=== PATIENT | female | born 1940 | race Caucasian/White ===

== ENCOUNTER 2017-05-04 08:59 | Emergency (ER) | payer MEDICARE, BC ==
[2017-05-04 09:21] VITALS: BP 140/86
--- NOTE | 2017-05-04 10:05 | EDM.PDOC ---
ED HPI GENERAL MEDICAL PROBLEM - General Chief Complaint: General Stated Complaint: WEAKNESS Time Seen by Provider: 05/04/17 09:55 Source of Information: Reports: Patient, RN Notes Reviewed History Limitations: Reports: No Limitations - History of Present Illness INITIAL COMMENTS - FREE TEXT/NARRATIVE: 77-year-old female presents emergency department day complaint of cough, weakness body aches and fever she's been ill for 3 days she did receive a flu shot this year - Related Data Allergies Allergy/AdvReac Type Severity Reaction Status Date / Time cephalexin monohydrate Allergy Rash Verified 05/04/17 09:26 [From Keflex] Penicillins Allergy Rash Verified 05/04/17 09:26 Sulfa (Sulfonamide AdvReac Nausea and Verified 05/04/17 09:26 Antibiotics) Vomiting Home Meds: Home Meds Aspirin [Halfprin] 81 mg PO DAILY 06/26/14 [History] Cholecalciferol (Vitamin D3) [Vitamin D3] 1,000 unit PO DAILY 06/26/14 [History] Multivitamin [Multi-Vitamin Daily] 1 each PO DAILY 06/26/14 [History] Omeprazole [Prilosec] 20 mg PO DAILY 06/26/14 [History] Albuterol Sulfate [Proair Hfa] 1 - 2 puff IH Q4H PRN 04/04/17 [History] Benzonatate [Tessalon Perles] 1 - 2 cap PO TID PRN 04/04/17 [History] Calcium Carb & Citrate/Vit D3 [Calcium + D3 ER Tablet] 1 tab PO DAILY 04/04/17 [ History] Cetirizine [ZyrTEC] 10 mg PO DAILY 04/04/17 [History] Codeine/guaiFENesin [guaiFENesin-Codeine Syrup] 10 ml PO Q4H PRN 04/04/17 [ History] Docusate Sodium [Colace] 100 mg PO DAILY 04/04/17 [History] Fluorometholone [Fluorometholone 0.1% Ophth Susp] 1 drop EYEBOTH BID PRN [History] Fluticasone Propionate [Flonase] 2 spray JACINTO DAILY 04/04/17 [History] Fluticasone/Salmeterol [Advair HFA 115-21] 2 puff INH BID 04/04/17 [History] LORazepam [Ativan] 1 mg PO BID PRN 04/04/17 [History] Melatonin 1 mg PO BEDTIME PRN 04/04/17 [History] Pyridoxine HCl [Vitamin B-6] 100 mg PO DAILY 04/04/17 [History] Metoprolol Tartrate [Lopressor] 25 mg PO DAILY 05/04/17 [History] amLODIPine Besylate [Amlodipine Besylate] 5 mg PO DAILY 05/04/17 [History] Past Medical History HEENT History: Reports: Allergic Rhinitis, Sinusitis Cardiovascular History: Reports: Arrhythmia, Hypertension Respiratory History: Reports: Asthma Other Respiratory History: lung cancer left bronchiole 2014 Neurological History: Reports: Neuropathy, Peripheral Endocrine/Metabolic History: Reports: Hypothyroidism Oncologic (Cancer) History: Reports: Lung, Other (See Below) Other Oncologic History: cancer on left bronchial tube, chemo and radiation 2 yrs ago - Past Surgical History Cardiovascular Surgical History: Reports: None Respiratory Surgical History: Reports: Other (See Below) Other Respiratory Surgeries/Procedures: bronchial tube cancer, radiation and chemo 2015 GI Surgical History: Reports: None Social & Family History - Tobacco Use Smoking Status *Q: Never Smoker Second Hand Smoke Exposure: No - Alcohol Use Days Per Week of Alcohol Use: 0 - Recreational Drug Use Recreational Drug Use: No ED ROS GENERAL - Review of Systems Review Of Systems: See Below Constitutional: Reports: Fever, Chills, Weakness HEENT: Reports: No Symptoms Respiratory: Reports: Cough, Sputum. Denies: Shortness of Breath Cardiovascular: Reports: No Symptoms GI/Abdominal: Reports: No Symptoms : Reports: No Symptoms Musculoskeletal: Reports: Muscle Pain Skin: Reports: No Symptoms ED EXAM, GENERAL - Physical Exam Exam: See Below Exam Limited By: No Limitations General Appearance: Alert, WD/WN, No Apparent Distress Head: Atraumatic, Normocephalic Neck: Normal Inspection, Supple, Non-Tender, Full Range of Motion Respiratory/Chest: No Respiratory Distress, Lungs Clear, Normal Breath Sounds, No Accessory Muscle Use Cardiovascular: Regular Rate, Rhythm, No Murmur Course - Vital Signs Last Recorded V/S: Last Vital Signs Temp 101.1 F H 05/04/17 09:33 Pulse 103 H 05/04/17 09:33 Resp 20 05/04/17 09:33 BP 140/86 05/04/17 09:33 Pulse Ox 93 L 05/04/17 09:33 Departure - Departure Time of Disposition: 10:03 Disposition: Home, Self-Care 01 Condition: Good Clinical Impression: Influenza A - Discharge Information Referrals: Lance Collins PA [Primary Care Provider] - Additional Instructions: Use the Robitussin-AC as needed for cough, use Zofran as needed for nausea and vomiting symptoms, Please followup with your primary care provider in 3-5 days if not better, please call return to the emergency department with worsening of symptoms. - Assessment/Plan Plan: Assessment Acuity = acute Site and laterality = seasonal flu Etiology = influenza A Manifestations = cough, nausea, vomiting fever Location of injury = Home Lab values = positive for influenza A Plan She is outside the window for Tamiflu treatment symptomatic treatment with Robitussin-AC 10 mL by mouth every 6 hours when necessary for cough Zofran ODT 4 mg every 8 hours when necessary nausea and vomiting symptoms follow-up with primary care 3-5 days if not better This note was dictated using [employer] voice recognition software please call with any questions on syntax or silvia.
[2017-05-04] MEDS ORDERED: Ondansetron 4 MG Tab.DIS PO ONE (10:13)
== END 2017-05-04 10:40 | disposition home or self-care (01) ==
LOC: JP.ED 08:59
DX: J10.1 Influenza due to other identified influenza virus with other respiratory manifestations (principal); E03.9 Hypothyroidism, unspecified; I10 Essential (primary) hypertension; Z88.2 Allergy status to sulfonamides; Z88.0 Allergy status to penicillin; Z88.8 Allergy status to other drugs, medicaments and biological substances; Z79.899 Other long term (current) drug therapy; Z79.82 Long term (current) use of aspirin
CPT/HCPCS: 87804; 99285; A9270; 99284

== ENCOUNTER 2017-10-11 11:47 | Emergency (ER) | payer MEDICARE, BC ==
[2017-10-11 12:09] VITALS: BP 130/88
--- NOTE | 2017-10-11 13:03 | EDM.PDOC ---
ED HPI GENERAL MEDICAL PROBLEM - General Chief Complaint: Cardiovascular Problem Stated Complaint: RAPID HEART RATE/DOESN'T FEEL WELL Time Seen by Provider: 10/11/17 12:20 Source of Information: Reports: Patient History Limitations: Reports: No Limitations - History of Present Illness INITIAL COMMENTS - FREE TEXT/NARRATIVE: 77-year-old female over the past 24 hours has felt generalized malaise, anxiety , and felt palpitations and tachycardia this morning. She had a cardiac workup last fall because of tachycardia and was placed on beta blockers. She had been doing well but over the past couple of days she's felt uneasy and worried her heart was acting up and something was wrong so went into the clinic and was sent over to the emergency room. She has just a very subtle slight chest pressure which is intermittent. She feels short of breath with activity intermittently, it isn't consistent. On arrival her pulse was 74, blood pressure normal and in a normal sinus rhythm. Onset: Gradual (Over the past 1-2 days) Location: Reports: Chest Severity: Moderate Associated Symptoms: Reports: Chest Pain (Mild intermittent chest pressure), Malaise, Other (Anxious). Denies: Confusion, Fever/Chills, Nausea/Vomiting - Related Data Allergies Allergy/AdvReac Type Severity Reaction Status Date / Time cephalexin monohydrate Allergy Rash Verified 10/11/17 12:09 [From Keflex] Penicillins Allergy Rash Verified 10/11/17 12:09 Sulfa (Sulfonamide AdvReac Nausea and Verified 10/11/17 12:09 Antibiotics) Vomiting Home Meds: Home Meds Aspirin [Halfprin] 81 mg PO DAILY 06/26/14 [History] Cholecalciferol (Vitamin D3) [Vitamin D3] 1,000 unit PO DAILY 06/26/14 [History] Multivitamin [Multi-Vitamin Daily] 1 each PO DAILY 06/26/14 [History] Omeprazole [Prilosec] 20 mg PO DAILY 06/26/14 [History] Albuterol Sulfate [Proair Hfa] 1 - 2 puff IH Q4H PRN 04/04/17 [History] Benzonatate [Tessalon Perles] 1 - 2 cap PO TID PRN 04/04/17 [History] Calcium Carb & Citrate/Vit D3 [Calcium + D3 ER Tablet] 1 tab PO DAILY 04/04/17 [ History] Cetirizine [ZyrTEC] 10 mg PO DAILY 04/04/17 [History] Codeine/guaiFENesin [guaiFENesin-Codeine Syrup] 10 ml PO Q4H PRN 04/04/17 [ History] Docusate Sodium [Colace] 100 mg PO DAILY 04/04/17 [History] Fluorometholone [Fluorometholone 0.1% Ophth Susp] 1 drop EYEBOTH BID PRN [History] Fluticasone Propionate [Flonase] 2 spray JACINTO DAILY 04/04/17 [History] Fluticasone/Salmeterol [Advair HFA 115-21] 2 puff INH BID 04/04/17 [History] Melatonin 1 mg PO BEDTIME PRN 04/04/17 [History] Pyridoxine HCl [Vitamin B-6] 100 mg PO DAILY 04/04/17 [History] amLODIPine Besylate [Amlodipine Besylate] 5 mg PO DAILY 05/04/17 [History] Levothyroxine [Synthroid] 10/11/17 [History] Propranolol [Inderal] 10/11/17 [History] Simvastatin [Zocor] 10/11/17 [History] Past Medical History HEENT History: Reports: Allergic Rhinitis, Sinusitis Cardiovascular History: Reports: Arrhythmia, Hypertension Respiratory History: Reports: Asthma Other Respiratory History: lung cancer left bronchiole 2014 Neurological History: Reports: Neuropathy, Peripheral Endocrine/Metabolic History: Reports: Hypothyroidism Oncologic (Cancer) History: Reports: Lung, Other (See Below) Other Oncologic History: cancer on left bronchial tube, chemo and radiation 2 yrs ago - Past Surgical History Cardiovascular Surgical History: Reports: None Respiratory Surgical History: Reports: Other (See Below) Other Respiratory Surgeries/Procedures: bronchial tube cancer, radiation and chemo 2015 GI Surgical History: Reports: None Social & Family History - Tobacco Use Smoking Status *Q: Never Smoker ED ROS GENERAL - Review of Systems Review Of Systems: See Below Constitutional: Reports: Malaise. Denies: Fever, Chills HEENT: Reports: No Symptoms Respiratory: Reports: Shortness of Breath (Intermittent shortness of breath) Cardiovascular: Reports: Palpitations GI/Abdominal: Denies: Nausea, Vomiting : Reports: No Symptoms Skin: Reports: No Symptoms Neurological: Denies: Headache Psychiatric: Reports: Anxiety ED EXAM, GENERAL - Physical Exam Exam: See Below Exam Limited By: No Limitations General Appearance: Alert, Anxious Eye Exam: Bilateral Eye: Normal Inspection Throat/Mouth: Normal Inspection Head: Atraumatic Neck: Normal Inspection Respiratory/Chest: No Respiratory Distress, Lungs Clear Cardiovascular: Regular Rate, Rhythm. No: Tachycardia, Extra Beats GI/Abdominal: Soft, Non-Tender Extremities: Normal Inspection. No: Pedal Edema Neurological: Alert, Oriented Psychiatric: Anxious Skin Exam: Warm, Dry EKG INTERPRETATION Rhythm: NSR Course - Vital Signs Last Recorded V/S: Last Vital Signs Temp 95.7 F 10/11/17 12:22 Pulse 90 10/11/17 12:22 Resp 18 10/11/17 12:22 BP 130/88 10/11/17 12:22 Pulse Ox 93 L 10/11/17 12:22 - Orders/Labs/Meds Orders: Active Orders 24 hr Category Date Time Status EKG Documentation Completion [RC] ASDIRECTED Care 10/11/17 12:40 Active EKG 12 Lead [EK] Routine Ther 10/11/17 12:40 Ordered Labs: Laboratory Tests 10/11/17 10/11/17 10/11/17 Range/Units 12:40 12:40 12:40 WBC 7.0 (4.5-11.0) K/uL RBC 4.60 (3.30-5.50) M/uL Hgb 14.1 (12.0-15.0) g/dL Hct 41.3 (36.0-48.0) % MCV 90 (80-98) fL MCH 31 (27-31) pg MCHC 34 (32-36) % Plt Count 295 (150-400) K/uL Neut % (Auto) 71 H (36-66) % Lymph % (Auto) 17 L (24-44) % [place] % (Auto) 10 H (2-6) % Eos % (Auto) 2 (2-4) % Baso % (Auto) 0 (0-1) % D-Dimer, Quantitative 367 (0.0-400.0) ng/mL Sodium 135 L (140-148) mmol/L Potassium 3.9 (3.6-5.2) mmol/L Chloride 100 (100-108) mmol/L Carbon Dioxide 26 (21-32) mmol/L Anion Gap 12.9 (5.0-14.0) mmol/L BUN 20 H (7-18) mg/dL Creatinine 0.8 (0.6-1.0) mg/dL Est Cr Clr Drug Dosing 58.18 mL/min Estimated GFR (MDRD) > 60 (>60) Glucose 116 H (74-106) mg/dL Calcium 9.2 (8.5-10.1) mg/dL Total Bilirubin 0.4 (0.2-1.0) mg/dL AST 16 (15-37) U/L ALT 23 (12-78) U/L Alkaline Phosphatase 102 (46-116) U/L Troponin I < 0.017 (0.000-0.056) ng/mL Total Protein 7.3 (6.4-8.2) g/dL Albumin 3.2 L (3.4-5.0) g/dL Globulin 4.1 H (2.3-3.5) g/dL Albumin/Globulin Ratio 0.8 L (1.2-2.2) - Re-Assessments/Exams Free Text/Narrative Re-Assessment/Exam: 10/11/17 13:02 An EKG was done and was normal sinus rhythm. While visiting with the patient over 20 minutes her pulse went from 90 down to 72. She remained in a sinus rhythm her entire visit in the emergency room. CBC, CMP, troponin and d-dimer were obtained. 10/11/17 14:03 Labs were all reassuring, patient remained in sinus rhythm. Prior to discharge she was ambulated in the halls and reached a maximum rate of 80. She was even worried about a rate of 80. She was reassured. Departure - Departure Time of Disposition: 14:19 Disposition: Home, Self-Care 01 Condition: Good Clinical Impression: Palpitations, Sinus tachycardia, Anxiety about health Instructions: Sinus Tachycardia Referrals: Lance Collins PA [Primary Care Provider] - Forms: ED Department Discharge Care Plan Goals: Continue your current medications and increase activity as tolerated. Return anytime if worsening or concerns. - My Orders Last 24 Hours: My Active Orders 10/11/17 12:40 EKG Documentation Completion [RC] ASDIRECTED EKG 12 Lead [EK] Routine - Assessment/Plan Last 24 Hours: My Active Orders 10/11/17 12:40 EKG Documentation Completion [RC] ASDIRECTED EKG 12 Lead [EK] Routine
== END 2017-10-11 14:20 | disposition home or self-care (01) ==
LOC: JP.ED 11:47
DX: F41.9 Anxiety disorder, unspecified (principal); R00.0 Tachycardia, unspecified; I10 Essential (primary) hypertension; Z88.1 Allergy status to other antibiotic agents; Z88.0 Allergy status to penicillin; Z88.2 Allergy status to sulfonamides; Z79.82 Long term (current) use of aspirin; Z79.899 Other long term (current) drug therapy
CPT/HCPCS: 36415; 80053; 84484; 85025; 85379; 93005; 99283; 99284-25

== ENCOUNTER 2018-10-08 09:27 | Emergency (ER) | payer MEDICARE, OTHER ==
[2018-10-08 09:56] VITALS: BP 137/74
--- NOTE | 2018-10-08 10:31 | EDM.PDOC ---
ED HPI GENERAL MEDICAL PROBLEM - General Chief Complaint: Cardiovascular Problem Stated Complaint: HEART ISSUES Time Seen by Provider: 10/08/18 10:15 Source of Information: Reports: Patient, Old Records, RN History Limitations: Reports: No Limitations - History of Present Illness INITIAL COMMENTS - FREE TEXT/NARRATIVE: 78 yo female felt light-headed this am and checked her HR and she was in the 40' s. She drank a glass of water and came right in. Now feels better, but still a bit light-headed when she gets up. No SOB, nausea or diaphoresis. Has non- exertional chest tightness in the past, like today, but no recent exertional chest tightness. Took all her heart medicines this am. Her normal HR is in the 70's and her BP around 100/70. No new med changes reported. Is followed by cardiology with her last visit in August of this year. Onset: Today Onset Date: 10/08/18 Duration: Minutes:, Improving Location: Reports: Chest Quality: Reports: Pressure (mild) Severity: Mild Improves with: Reports: Other (? time) Worsens with: Reports: Other (unknown) Context: Reports: Other (see HPI) Associated Symptoms: Reports: Other (light-headed) Treatments ENTRY LEVEL FINANCE: Reports: Other (see below) (drank a glass of water) - Related Data Allergies Allergy/AdvReac Type Severity Reaction Status Date / Time cephalexin monohydrate Allergy Rash Verified 10/08/18 09:41 [From Keflex] Penicillins Allergy Rash Verified 10/08/18 09:41 Sulfa (Sulfonamide AdvReac Nausea and Verified 10/08/18 09:41 Antibiotics) Vomiting Home Meds: Home Meds Aspirin [Halfprin] 81 mg PO DAILY 06/26/14 [History] Cholecalciferol (Vitamin D3) [Vitamin D3] 1,000 unit PO DAILY 06/26/14 [History] Multivitamin [Multi-Vitamin Daily] 1 each PO DAILY 06/26/14 [History] Omeprazole [Prilosec] 20 mg PO DAILY 06/26/14 [History] Albuterol Sulfate [Proair Hfa] 1 - 2 puff IH Q4H PRN 04/04/17 [History] Calcium Carb & Citrate/Vit D3 [Calcium + D3 ER Tablet] 1 tab PO DAILY 04/04/17 [ History] Cetirizine [ZyrTEC] 10 mg PO DAILY 04/04/17 [History] Docusate Sodium [Colace] 100 mg PO DAILY 04/04/17 [History] Fluorometholone [Fluorometholone 0.1% Ophth Susp] 1 drop EYEBOTH BID PRN [History] Fluticasone Propionate [Flonase] 2 spray JACINTO DAILY 04/04/17 [History] Fluticasone/Salmeterol [Advair HFA 115-21] 2 puff INH BID 04/04/17 [History] Melatonin 1 mg PO BEDTIME PRN 04/04/17 [History] Pyridoxine HCl [Vitamin B-6] 100 mg PO DAILY 04/04/17 [History] amLODIPine Besylate [Amlodipine Besylate] 5 mg PO DAILY 05/04/17 [History] Levothyroxine [Synthroid] 1 tab PO QAM 10/11/17 [History] Simvastatin [Zocor] 1 tab PO BEDTIME 10/11/17 [History] Barium Sulfate [Volumen 0.1% Susp] 450 ml TOP QID 10/08/18 [History] Furosemide [Lasix] 20 mg PO 10/08/18 [History] LORazepam 0.5 mg PO Q6H PRN 10/08/18 [History] Losartan [Cozaar] 12.5 mg PO DAILY 10/08/18 [History] Metoprolol Succinate [Toprol XL] 12.5 mg PO DAILY 10/08/18 [History] Nitroglycerin 0.4 mg SL ASDIRECTED 10/08/18 [History] Past Medical History HEENT History: Reports: Allergic Rhinitis, Cataract, Sinusitis Cardiovascular History: Reports: Arrhythmia, Heart Failure, Hypertension Respiratory History: Reports: Asthma Other Respiratory History: lung cancer left bronchiole 2014 [employer] History: Reports: Neurological History: Reports: Neuropathy, Peripheral Endocrine/Metabolic History: Reports: Hypothyroidism Oncologic (Cancer) History: Reports: Lung, Other (See Below) Other Oncologic History: cancer on left bronchial tube, chemo and radiation 2 yrs ago - Infectious Disease History Infectious Disease History: Reports: Chicken Pox, Measles, Mumps, Scarlet Fever - Past Surgical History HEENT Surgical History: Reports: Cataract Surgery, Eye Surgery Other HEENT Surgeries/Procedures: right eye lid surgery Cardiovascular Surgical History: Reports: None Respiratory Surgical History: Reports: Other (See Below) Other Respiratory Surgeries/Procedures: bronchial tube cancer, radiation and chemo 2016 lung collapsed with cancer treatment GI Surgical History: Reports: None Female Surgical History: Reports: Breast Biopsy Social & Family History - Tobacco Use Smoking Status *Q: Former Smoker Years of Tobacco use: 5 Packs/Tins Daily: 1 Used Tobacco, but Quit: Yes Month/Year Tobacco Last Used: 03/1967 Second Hand Smoke Exposure: Yes - Caffeine Use Caffeine Use: Reports: Coffee - Recreational Drug Use Recreational Drug Use: No ED ROS GENERAL - Review of Systems Review Of Systems: See Below Constitutional: Reports: No Symptoms, Weight Gain Respiratory: Reports: No Symptoms Cardiovascular: Reports: Chest Pain (mild tightness), Lightheadedness. Denies: Blood Pressure Problem, Dyspnea on Exertion, Orthopnea, Palpitations, Syncope Endocrine: Reports: No Symptoms GI/Abdominal: Reports: No Symptoms : Reports: No Symptoms Musculoskeletal: Reports: No Symptoms Skin: Reports: No Symptoms Neurological: Reports: No Symptoms Psychiatric: Reports: No Symptoms ED EXAM, GENERAL - Physical Exam Exam: See Below Exam Limited By: No Limitations General Appearance: Alert, WD/WN, No Apparent Distress Eye Exam: Bilateral Eye: Normal Inspection Ears: Normal External Exam, Normal Canal, Hearing Grossly Normal Ear Exam: Bilateral Ear: Auricle Normal, Canal Normal Nose: Normal Inspection, No Blood Throat/Mouth: Normal Inspection, Normal Lips, Normal Voice, No Airway Compromise Head: Atraumatic, Normocephalic Respiratory/Chest: No Respiratory Distress, Lungs Clear, Normal Breath Sounds, No Accessory Muscle Use Cardiovascular: Regular Rate, Rhythm, No Edema. No: Bradycardia, Tachycardia GI/Abdominal: Normal Bowel Sounds, Soft, Non-Tender, No Distention Back Exam: Normal Inspection. No: CVA Tenderness (R), CVA Tenderness (L) Extremities: Normal Inspection, Normal Range of Motion, Non-Tender, No Pedal Edema Neurological: Alert, Oriented, CN II-XII Intact, Normal Cognition, No Motor/ Sensory Deficits Psychiatric: Normal Affect, Normal Mood Skin Exam: Warm, Dry, Intact, Normal Color, No Rash EKG INTERPRETATION EKG Date: 10/08/18 Time: 10:30 Rhythm: NSR Rate (Beats/Min): 67 [place]: Normal P-Wave: Present QRS: Normal ST-T: Normal QT: Normal Comparison: No Change Course - Vital Signs Text/Narrative:: Orthostats normal Last Recorded V/S: Last Vital Signs Temp 36.4 C 10/08/18 09:56 Pulse 69 10/08/18 09:56 Resp 14 10/08/18 09:56 BP 137/74 10/08/18 09:56 Pulse Ox 96 10/08/18 09:56 - Orders/Labs/Meds Orders: Active Orders 24 hr Category Date Time Status Cardiac Monitoring [RC] .As Directed Care 10/08/18 09:29 Active EKG Documentation Completion [RC] ASDIRECTED Care 10/08/18 10:10 Active Orthostatic Vital Signs [RC] ASDIRECTED Care 10/08/18 10:26 Active EKG 12 Lead [EK] Routine Ther 10/08/18 10:09 Ordered Departure - Departure Time of Disposition: 11:00 Disposition: Home, Self-Care 01 Condition: Good Clinical Impression: Bradycardia Instructions: Bradycardia, Adult Referrals: Elyse Morrison PA-C [Primary Care Provider] - Forms: ED Department Discharge Additional Instructions: Return Holter monitor after 48 hrs as directed. Recheck with your provider in a few days to see what was found. Return as needed. - My Orders Last 24 Hours: My Active Orders 10/08/18 09:29 Cardiac Monitoring [RC] .As Directed 10/08/18 10:09 EKG 12 Lead [EK] Routine 10/08/18 10:10 EKG Documentation Completion [RC] ASDIRECTED 10/08/18 10:26 Orthostatic Vital Signs [RC] ASDIRECTED - Assessment/Plan Last 24 Hours: My Active Orders 10/08/18 09:29 Cardiac Monitoring [RC] .As Directed 10/08/18 10:09 EKG 12 Lead [EK] Routine 10/08/18 10:10 EKG Documentation Completion [RC] ASDIRECTED 10/08/18 10:26 Orthostatic Vital Signs [RC] ASDIRECTED
== END 2018-10-08 11:18 | disposition home or self-care (01) ==
LOC: JP.ED 09:27
DX: R00.1 Bradycardia, unspecified (principal); I11.0 Hypertensive heart disease with heart failure; I50.9 Heart failure, unspecified; J45.909 Unspecified asthma, uncomplicated; E03.9 Hypothyroidism, unspecified; Z87.891 Personal history of nicotine dependence; Z88.2 Allergy status to sulfonamides; Z79.899 Other long term (current) drug therapy
CPT/HCPCS: 93005; 93010; 93225; 93226; 99283-25

== ENCOUNTER 2020-07-26 11:45 | Inpatient (IN) | payer MEDICARE, OTHER ==
--- NOTE | 2020-07-26 12:29 | EDM.PDOC ---
ED HPI GENERAL MEDICAL PROBLEM - General Chief Complaint: ENT Problem Stated Complaint: SENT FROM CLINIC Time Seen by Provider: 07/26/20 12:15 Source of Information: Reports: Patient, RN Notes Reviewed History Limitations: Reports: No Limitations - History of Present Illness INITIAL COMMENTS - FREE TEXT/NARRATIVE: 80-year-old female presents emergency department today with complaint of swelling difficulty swallowing that is really progressed over the last 24 hours. She was initially evaluated in clinic basic blood work at that time was done BMP negative mono negative strep was negative white count did reveal elevated WBC at 23,000. Sent to the emergency department for further evaluation. She denies any fevers no nausea or vomiting does feel short of breath at times. - Related Data Allergies Allergy/AdvReac Type Severity Reaction Status Date / Time adhesive tape Allergy Rash Verified 07/26/20 11:52 amoxicillin Allergy Rash Verified 07/26/20 11:52 ampicillin Allergy Rash Verified 07/26/20 11:52 cephalexin monohydrate Allergy Rash Verified 07/26/20 11:52 [From Keflex] Penicillins Allergy Rash Verified 07/26/20 11:52 Sulfa (Sulfonamide AdvReac Nausea and Verified 07/26/20 11:52 Antibiotics) Vomiting Home Meds: Home Meds Aspirin [Halfprin] 81 mg PO DAILY 06/26/14 [History] Cholecalciferol (Vitamin D3) [Vitamin D3] 1,000 unit PO DAILY 06/26/14 [History] Multivitamin [Multi-Vitamin Daily] 1 each PO DAILY 06/26/14 [History] Albuterol Sulfate [Proair Hfa] 1 - 2 puff IH Q4H PRN 04/04/17 [History] Calcium Carb, Citrate/Vit D3 [Calcium + D3 ER Tablet] 1 tab PO DAILY 04/04/17 [History] Cetirizine [ZyrTEC] 10 mg PO DAILY 04/04/17 [History] Docusate Sodium [Colace] 100 mg PO DAILY 04/04/17 [History] Fluorometholone [Fluorometholone 0.1% Ophth Susp] 1 drop EYEBOTH BID PRN 04/04/17 [History] Fluticasone Propionate [Flonase] 2 spray JACINTO DAILY 04/04/17 [History] Pyridoxine HCl (Vitamin B6) [Vitamin B-6] 100 mg PO DAILY 04/04/17 [History] amLODIPine Besylate [Amlodipine Besylate] 5 mg PO DAILY 05/04/17 [History] Levothyroxine [Synthroid] 88 mcg PO QAM 10/11/17 [History] Simvastatin [Zocor] 40 mg PO BEDTIME 10/11/17 [History] Furosemide [Lasix] 20 mg PO DAILY PRN 10/08/18 [History] Losartan [Cozaar] 12.5 mg PO DAILY 10/08/18 [History] Metoprolol Succinate [Toprol XL] 12.5 mg PO DAILY 10/08/18 [History] Nitroglycerin 0.4 mg SL ASDIRECTED 10/08/18 [History] Famotidine 40 mg PO DAILY 06/01/20 [History] Fluticasone/Umeclidin/Vilanter [Trelegy Ellipta 100-62.5-25] 1 puff INH DAILY 06/01/20 [History] Montelukast [Singulair] 10 mg PO DAILY 06/01/20 [History] Albuterol Sulfate 3 ml IH Q6H PRN 07/12/20 [History] Ipratropium [Atrovent 0.06% Nasal [place]] 2 spray NASBOTH DAILY 07/12/20 [History] Past Medical History HEENT History: Reports: Allergic Rhinitis, Cataract, Sinusitis Cardiovascular History: Reports: Arrhythmia, Heart Failure, Hypertension Respiratory History: Reports: Asthma Other Respiratory History: lung cancer left bronchiole 2014 [employer] History: Reports: Musculoskeletal History: Reports: Other (See Below) Other Musculoskeletal History: bilat knee pain Neurological History: Reports: Neuropathy, Peripheral Endocrine/Metabolic History: Reports: Hypothyroidism Oncologic (Cancer) History: Reports: Lung, Other (See Below) Other Oncologic History: cancer on left bronchial tube, chemo and radiation 2 yrs ago - Infectious Disease History Infectious Disease History: Reports: Chicken Pox, Measles, Mumps, Scarlet Fever - Past Surgical History Head Surgeries/Procedures: Reports: None HEENT Surgical History: Reports: Cataract Surgery, Eye Surgery Other HEENT Surgeries/Procedures: right eye lid surgery Cardiovascular Surgical History: Reports: None Respiratory Surgical History: Reports: Other (See Below) Other Respiratory Surgeries/Procedures: bronchial tube cancer, radiation and chemo 2016 lung collapsed with cancer treatment GI Surgical History: Reports: None Female Surgical History: Reports: Breast Biopsy Oncologic Surgical History: Reports: None Social & Family History - Tobacco Use Tobacco Use Status *Q: Never Tobacco User Second Hand Smoke Exposure: No - Caffeine Use Caffeine Use: Reports: Coffee, Soda, Tea - Recreational Drug Use Recreational Drug Use: No ED ROS ENT - Review of Systems Review Of Systems: See Below Constitutional: Denies: Fever, Chills HEENT: Reports: Throat Pain, Throat Swelling Respiratory: Reports: Shortness of Breath Cardiovascular: Reports: No Symptoms GI/Abdominal: Reports: No Symptoms : Reports: No Symptoms ED EXAM, ENT - Physical Exam Exam: See Below Text/Narrative:: Mouth mucosa is moist and pink I do appreciate some edema right side of the mouth there is some edema on the floor of the mouth as well 1 cm size aphthous ulcers appreciated on the base of the tongue right side. Exam Limited By: No Limitations General Appearance: Alert, WD/WN, No Apparent Distress Neck: Other (There is a large tender mass right side of the neck submandibular just starting to extend the superior portion of the neck I do not appreciate anything in the anterior cervical chain bilaterally there is no deviation of the trachea) Respiratory/Chest: No Respiratory Distress, Lungs Clear, Normal Breath Sounds, No Accessory Muscle Use, Chest Non-Tender Cardiovascular: Regular Rate, Rhythm, No Murmur GI/Abdominal: Soft, Non-Tender Course - Vital Signs Last Recorded V/S: Last Vital Signs Temp 97.5 F 07/28/20 04:00 Pulse 66 07/28/20 04:00 Resp 18 07/28/20 04:00 BP 100/54 L 07/28/20 04:00 Pulse Ox 97 07/28/20 04:00 - Orders/Labs/Meds Orders: Medication Orders Acetaminophen (Acetaminophen 325 Mg Tab) 650 mg PO Q4H PRN PRN Reason: Pain (Mild 1-3)/fever Albuterol (Albuterol 0.083% 2.5 Mg/3 Ml Neb Soln) 2.5 mg NEB Q4H PRN PRN Reason: Shortness Of Breath/wheezing Amlodipine Besylate (Amlodipine 5 Mg Tab) 5 mg PO DAILY [facility] Last Admin: 07/27/20 09:07 Dose: 5 mg Documented by: CHRISTOPHE Aspirin (Aspirin 81 Mg Tab.Ec) 81 mg PO DAILY [facility] Last Admin: 07/27/20 09:02 Dose: 81 mg Documented by: CHRISTOPHE Benzocaine/Menthol (Benzocaine/Cetylpyridinium/Menthol Lozenge) 1 lozenge MUCMEM Q2H PRN PRN Reason: Sore Throat Cetirizine HCl (Cetirizine 10 Mg Tab) 10 mg PO DAILY [facility] Last Admin: 07/27/20 09:01 Dose: 10 mg Documented by: CHRISTOPHE Famotidine (Famotidine 20 Mg Tab) 40 mg PO DAILY [facility] Last Admin: 07/27/20 09:02 Dose: 40 mg Documented by: CHRISTOPHE Fluticasone Propionate (Fluticasone Propionate Nasal [place] 16 Gm Bottle) 0 gm NASBOTH DAILY [facility] Last Admin: 07/27/20 09:03 Dose: 1 appful Documented by: CHRISTOPHE Levofloxacin/Dextrose 500 mg/ (Premix) 100 mls @ 100 mls/hr IV Q24H [facility] Last Admin: 07/27/20 15:06 Dose: 100 mls/hr Documented by: LIMA Clindamycin Phosphate 600 mg/ (Sodium Chloride) 54 mls @ 100 mls/hr IV Q8H [facility] Last Admin: 07/28/20 04:11 Dose: 100 mls/hr Documented by: Admin: 07/27/20 20:52 Dose: 100 mls/hr Documented by: Admin: 07/27/20 14:15 Dose: 100 mls/hr Documented by: Admin: 07/27/20 05:32 Dose: 100 mls/hr Documented by: Admin: 07/26/20 21:02 Dose: 100 mls/hr Documented by: GUERLINE Ibuprofen (Ibuprofen 600 Mg Tab) 600 mg PO Q6H PRN PRN Reason: Pain/Fever Ipratropium [place] (Ipratropium 0.06% Nasal [place] 15 Ml Bottle) 0 ml NASBOTH DAILY [facility] Last Admin: 07/27/20 09:09 Dose: Not Given Documented by: CHRISTOPHE Ketorolac Tromethamine (Ketorolac 30 Mg/Ml Sdv) 15 mg IVPUSH Q6H PRN PRN Reason: Pain (moderate 4-6) Stop: 07/31/20 15:34 Lactobacillus Rhamnosus (Lactobacillus Rhamnosus Gg (Probiotic) Cap) 1 cap PO BID [facility] Last Admin: 07/27/20 20:52 Dose: 1 cap Documented by: Admin: 07/27/20 09:02 Dose: 1 cap Documented by: Admin: 07/26/20 21:01 Dose: 1 cap Documented by: GUERLINE Levothyroxine Sodium (Levothyroxine 88 Mcg Tab) 88 mcg PO ACBREAKFAST [facility] Last Admin: 07/27/20 07:36 Dose: 88 mcg Documented by: CHRISTOPHE Losartan Potassium (Losartan 25 Mg Tab) 12.5 mg PO DAILY [facility] Last Admin: 07/27/20 09:07 Dose: 12.5 mg Documented by: CHRISTOPHE Magnesium Hydroxide (Magnesium Hydroxide 400 Mg/5 Ml Susp 30 Ml Cup) 30 ml PO Q12H PRN PRN Reason: Constipation Melatonin (Melatonin 3 Mg Tab) 9 mg PO BEDTIME PRN PRN Reason: Sleep Last Admin: 07/27/20 21:44 Dose: 9 mg Documented by: Admin: 07/27/20 00:20 Dose: 9 mg Documented by: GUERLINE Metoprolol Succinate (Metoprolol Succinate 25 Mg Tab.Er) 12.5 mg PO DAILY [facility] Last Admin: 07/27/20 09:07 Dose: 12.5 mg Documented by: CHRISTOPHE Montelukast Sodium (Montelukast 10 Mg Tab) 10 mg PO DAILY [facility] Last Admin: 07/27/20 09:02 Dose: 10 mg Documented by: CHRISTOPHE (Fluticasone/Umeclidin/Vilanter [ Trelegy Ellipta 100- 62.5-*Pom* 1 puff INH DAILY [facility] Last Admin: 07/27/20 08:20 Dose: 1 puff Documented by: AKASH Ondansetron HCl (Ondansetron 4 Mg/2 Ml Sdv) 4 mg IV Q6H PRN PRN Reason: Nausea/Vomiting Ondansetron HCl (Ondansetron 4 Mg Tab.Dis) 4 mg PO Q6H PRN PRN Reason: Nausea able to take PO Last Admin: 07/27/20 08:59 Dose: 4 mg Documented by: CHRISTOPHE Pyridoxine HCl (Vitamin B6-Pyridoxine 50 Mg Tab) 100 mg PO DAILY [facility] Last Admin: 07/27/20 09:02 Dose: 100 mg Documented by: SWANRHO Senna/Docusate Sodium (Docusate Sodium/Sennosides 50-8.6 Mg Tab) 1 tab PO BID PRN PRN Reason: Constipation Simvastatin (Simvastatin 20 Mg Tab) 40 mg PO BEDTIME [facility] Last Admin: 07/27/20 20:52 Dose: 40 mg Documented by: Admin: 07/26/20 21:01 Dose: 40 mg Documented by: GUERLINE Labs: Laboratory Tests 07/26/20 07/26/20 Range/Units 12:48 12:48 Lactic Acid 1.4 (0.4-2.0) mmol/L C-Reactive Protein 10.39 H (0.0-0.3) mg/dL Meds: Medications Generic Name Dose Route Start Last Admin Trade Name Freq PRN Reason Stop Dose Admin Acetaminophen 650 mg 07/26/20 15:33 Acetaminophen 325 Mg Tab PO Q4H PRN Pain (Mild 1-3)/fever Albuterol 2.5 mg 07/26/20 15:33 Albuterol 0.083% 2.5 Mg/3 Ml Neb Soln NEB Q4H PRN Shortness Of Breath/wheezing Amlodipine Besylate 5 mg 07/27/20 09:00 07/27/20 09:07 Amlodipine 5 Mg Tab PO 5 mg DAILY [facility] Administration Aspirin 81 mg 07/27/20 09:00 07/27/20 09:02 Aspirin 81 Mg Tab.Ec PO 81 mg DAILY [facility] Administration Benzocaine/Menthol 1 lozenge 07/26/20 15:33 Benzocaine/Cetylpyridinium/Menthol Lozenge MUCMEM Q2H PRN Sore Throat Cetirizine HCl 10 mg 07/27/20 09:00 07/27/20 09:01 Cetirizine 10 Mg Tab PO 10 mg DAILY [facility] Administration Famotidine 40 mg 07/27/20 09:00 07/27/20 09:02 Famotidine 20 Mg Tab PO 40 mg DAILY [facility] Administration Fluticasone Propionate 0 gm 07/27/20 09:00 07/27/20 09:03 Fluticasone Propionate Nasal [place] 16 Gm Bottle NASBOTH 1 appful DAILY [facility] Administration Levofloxacin/Dextrose 500 mg/ 100 mls @ 100 mls/hr 07/27/20 15:00 07/27/20 15:06 Premix IV 100 mls/hr Q24H [facility] Administration Clindamycin Phosphate 600 mg/ 54 mls @ 100 mls/hr 07/26/20 21:00 07/28/20 04:11 Sodium Chloride IV 100 mls/hr Q8H [facility] Administration Ibuprofen 600 mg 07/26/20 15:33 Ibuprofen 600 Mg Tab PO Q6H PRN Pain/Fever Ipratropium [place] 0 ml 07/27/20 09:00 07/27/20 09:09 Ipratropium 0.06% Nasal [place] 15 Ml Bottle NASBOTH Not Given DAILY [facility] Ketorolac Tromethamine 15 mg 07/26/20 15:33 Ketorolac 30 Mg/Ml Sdv IVPUSH 07/31/20 15:34 Q6H PRN Pain (moderate 4-6) Lactobacillus Rhamnosus 1 cap 07/26/20 21:00 07/27/20 20:52 Lactobacillus Rhamnosus Gg (Probiotic) Cap PO 1 cap BID [facility] Administration Levothyroxine Sodium 88 mcg 07/27/20 07:30 07/27/20 07:36 Levothyroxine 88 Mcg Tab PO 88 mcg ACBREAKFAST [facility] Administration Losartan Potassium 12.5 mg 07/27/20 09:00 07/27/20 09:07 Losartan 25 Mg Tab PO 12.5 mg DAILY [facility] Administration Magnesium Hydroxide 30 ml 07/26/20 15:33 Magnesium Hydroxide 400 Mg/5 Ml Susp 30 Ml Cup PO Q12H PRN Constipation Melatonin 9 mg 07/26/20 15:33 07/27/20 21:44 Melatonin 3 Mg Tab PO 9 mg BEDTIME PRN Administration Sleep Metoprolol Succinate 12.5 mg 07/27/20 09:00 07/27/20 09:07 Metoprolol Succinate 25 Mg Tab.Er PO 12.5 mg DAILY [facility] Administration Montelukast Sodium 10 mg 07/27/20 09:00 07/27/20 09:02 Montelukast 10 Mg Tab PO 10 mg DAILY [facility] Administration (Fluticasone/ 1 puff 07/27/20 09:00 07/27/20 08:20 Umeclidin/Vilanter [ INH 1 puff Trelegy Ellipta 100- DAILY [facility] Administration 62.5-*Pom* Ondansetron HCl 4 mg 07/26/20 15:33 Ondansetron 4 Mg/2 Ml Sdv IV Q6H PRN Nausea/Vomiting Ondansetron HCl 4 mg 07/26/20 15:33 07/27/20 08:59 Ondansetron 4 Mg Tab.Dis PO 4 mg Q6H PRN Administration Nausea able to take PO Pyridoxine HCl 100 mg 07/27/20 09:00 07/27/20 09:02 Vitamin B6-Pyridoxine 50 Mg Tab PO 100 mg DAILY [facility] Administration Senna/Docusate Sodium 1 tab 07/26/20 15:33 Docusate Sodium/Sennosides 50-8.6 Mg Tab PO BID PRN Constipation Simvastatin 40 mg 07/26/20 21:00 07/27/20 20:52 Simvastatin 20 Mg Tab PO 40 mg BEDTIME [facility] Administration Discontinued Medications Generic Name Dose Route Start Last Admin Trade Name Freq PRN Reason Stop Dose Admin Sodium Chloride 70 mls @ 3 mls/sec 07/26/20 13:15 07/26/20 13:16 Normal Saline IV 07/26/20 16:00 3 mls/sec ASDIRECTED [facility]IN Administration Levofloxacin/Dextrose 500 mg/ 100 mls @ 100 mls/hr 07/26/20 14:16 07/26/20 15:05 Premix IV 07/26/20 15:15 100 mls/hr ONETIME ONE Administration Clindamycin Phosphate 600 mg/ 54 mls @ 100 mls/hr 07/26/20 16:00 07/26/20 16:44 Sodium Chloride IV 100 mls/hr Q8H [facility] Administration Sodium Chloride 1,000 mls @ 125 mls/hr 07/26/20 15:33 07/27/20 00:52 Normal Saline IV 125 mls/hr ASDIRECTED [facility] Administration Iopamidol 100 ml 07/26/20 13:04 07/26/20 13:17 Iopamidol 612 Mg/Ml 500 Ml Multipack Bottle IV 07/26/20 13:05 100 ml ONETIME ONE Administration Sodium Chloride 10 ml 07/26/20 13:04 07/26/20 13:16 Sodium Chloride 0.9% 10 Ml Syringe FLUSH 07/26/20 13:05 10 ml ONETIME ONE Administration Departure - Departure Time of Disposition: 07:09 Disposition: Admitted As Inpatient 67 Condition: Fair Clinical Impression: Mass of submandibular region - Discharge Information Sepsis Event Note (ED) - Evaluation Sepsis Screening Result: No Definite Risk - Assessment/Plan Plan: Assessment Acuity = acute Site and laterality = submandibular mass right side Etiology = unknown Manifestations = difficulty swallowing Location of injury = Home Lab values = lactic acid normal 1.[address] scan describes mass above Plan Call discussed case hospitalist services 1800 kindly agreed to come and evaluate the patient emergency department for admission This note was dictated using [employer] voice recognition software please call with any questions on syntax or grammar.
[2020-07-26] MEDS ORDERED: Sodium Chloride 0.9% 10 ML Syringe FLUSH ONE (13:04)
[2020-07-26] MEDS ORDERED: Iopamidol 612 MG/ML 500 ML Multipack Bottle IV ONE (13:04)
--- NOTE | 2020-07-26 14:03 | CT ---
Soft Tissue Neck w Cont CLINICAL HISTORY: Right submandibular mass COMPARISON: None TECHNIQUE: Multiple axial images were obtained of the neck with the IV infusion of iodinated contrast. Auto dosage reduction and iterative reconstruction techniques employed. FINDINGS: The nasopharynx has a normal contour. There is near complete opacification of the left maxillary sinus. There is some chronic mucoperiosteal reaction in the sinus wall.. There are no parapharyngeal masses seen. The vallecula is asymmetric with some mass effect on the right. There is soft tissue swelling on the right down to just below the piriform sinus. The vocal cords are symmetric. The subglottic airway has a normal course and contour. The thyroid gland appears normal bilaterally. There is some fatty replacement in both submandibular glands. The right submandibular gland is enlarged. There is stranding in the fat surrounding the performed sinus. There are some ill-definition on the right digastric muscle. There are multiple enlarged lymph nodes in the right neck IMPRESSION: Soft tissue swelling in the right low pharynx extending to the floor the mouth and right submandibular region. There is enlargement of the right submandibular gland with some inflammatory change. This may represent a diffuse inflammatory process. Underlying neoplasm is not excluded Lymphadenopathy in the right neck
[2020-07-26] MEDS ORDERED: Levofloxacin/Dextrose 5%-Water 500 MG in Premix Bag 1 BAG IV ONE (14:16)
--- NOTE | 2020-07-26 15:17 | PCM.HP.2 ---
H&P History of Present Illness - General Date of Service: 07/26/20 Admit Problem/Dx: Admission Diagnosis/Problem Admission Diagnosis/Problem Sialoadenitis of submandibular gland Source of Information: Patient, Provider History Limitations: Reports: No Limitations - History of Present Illness Initial Comments - Free Text/Narative: CC: It hurts to swallow HPI: Minna presents to the emergency room from the clinic after presenting with throat pain and right neck swelling. She reports 2 days of progressive pain and swelling involving the right side of her neck and throat. Pain is described as a razor blade-like pain that occurs when she swallows. This pain is severe. She has a very mild pain when she is not trying to swallow. She did get a dose of ketorolac at the clinic and this has helped the pain some. She had not tried anything else. Pain has steadily been getting worse over the past 48 hours. The swelling in the neck has progressed over that time as well. She does not feel short of breath. She has had subjective fevers and has measured a temperature of 99 9 and this was taken about 2 hours after she had Tylenol. No sick contacts or recent travel. No nausea or abdominal pain. She has not had anything more than a small amount of water to eat or drink for about 2-1/2 days because of the pain. When she was evaluated in the clinic there was concern for strep throat versus other infectious versus inflammatory conditions. Her white count was elevated at more than 22,000. Strep testing and Monospot were negative. She was sent to the emergency room for further evaluation after her white count was discovered. In the emergency room she had a CT scan of the neck which revealed swelling and significant inflammation surrounding the submandibular gland on the right. No evidence for airway compromise. She had some lymphadenopathy on the right side as well. She received a dose of levofloxacin and blood cultures were obtained. She will be admitted for further management of right-sided sialoadenitis. - Related Data Allergies/Adverse Reactions: Allergies Allergy/AdvReac Type Severity Reaction Status Date / Time adhesive tape Allergy Rash Verified 07/26/20 11:52 amoxicillin Allergy Rash Verified 07/26/20 11:52 ampicillin Allergy Rash Verified 07/26/20 11:52 cephalexin monohydrate Allergy Rash Verified 07/26/20 11:52 [From Keflex] Penicillins Allergy Rash Verified 07/26/20 11:52 Sulfa (Sulfonamide AdvReac Nausea and Verified 07/26/20 11:52 Antibiotics) Vomiting Home Medications: Home Meds Aspirin [Halfprin] 81 mg PO DAILY 06/26/14 [History] Cholecalciferol (Vitamin D3) [Vitamin D3] 1,000 unit PO DAILY 06/26/14 [History] Multivitamin [Multi-Vitamin Daily] 1 each PO DAILY 06/26/14 [History] Albuterol Sulfate [Proair Hfa] 1 - 2 puff IH Q4H PRN 04/04/17 [History] Calcium Carb, Citrate/Vit D3 [Calcium + D3 ER Tablet] 1 tab PO DAILY 04/04/17 [History] Cetirizine [ZyrTEC] 10 mg PO DAILY 04/04/17 [History] Docusate Sodium [Colace] 100 mg PO DAILY 04/04/17 [History] Fluorometholone [Fluorometholone 0.1% Ophth Susp] 1 drop EYEBOTH BID PRN 04/04/17 [History] Fluticasone Propionate [Flonase] 2 spray JACINTO DAILY 04/04/17 [History] Pyridoxine HCl (Vitamin B6) [Vitamin B-6] 100 mg PO DAILY 04/04/17 [History] amLODIPine Besylate [Amlodipine Besylate] 5 mg PO DAILY 05/04/17 [History] Levothyroxine [Synthroid] 88 mcg PO QAM 10/11/17 [History] Simvastatin [Zocor] 40 mg PO BEDTIME 10/11/17 [History] Furosemide [Lasix] 20 mg PO DAILY PRN 10/08/18 [History] Losartan [Cozaar] 12.5 mg PO DAILY 10/08/18 [History] Metoprolol Succinate [Toprol XL] 12.5 mg PO DAILY 10/08/18 [History] Nitroglycerin 0.4 mg SL ASDIRECTED 10/08/18 [History] Famotidine 40 mg PO DAILY 06/01/20 [History] Fluticasone/Umeclidin/Vilanter [Trelegy Ellipta 100-62.5-25] 1 puff INH DAILY 06/01/20 [History] Montelukast [Singulair] 10 mg PO DAILY 06/01/20 [History] Albuterol Sulfate 3 ml IH Q6H PRN 07/12/20 [History] Ipratropium [Atrovent 0.06% Nasal [place]] 2 spray NASBOTH DAILY 07/12/20 [History] Past Medical History HEENT History: Reports: Allergic Rhinitis, Cataract, Sinusitis Cardiovascular History: Reports: Arrhythmia, Heart Failure, Hypertension Respiratory History: Reports: Asthma Other Respiratory History: lung cancer left bronchiole 2014 Genitourinary History: Reports: None 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: Musculoskeletal History: Reports: Other (See Below) Other Musculoskeletal History: bilat knee pain Neurological History: Reports: Neuropathy, Peripheral Endocrine/Metabolic History: Reports: Hypothyroidism Oncologic (Cancer) History: Reports: Lung, Other (See Below) Other Oncologic History: cancer on left bronchial tube, chemo and radiation 2 yrs ago - Infectious Disease History Infectious Disease History: Reports: Chicken Pox, Measles, Mumps, Scarlet Fever - Past Surgical History Head Surgeries/Procedures: Reports: None HEENT Surgical History: Reports: Cataract Surgery, Eye Surgery Other HEENT Surgeries/Procedures: right eye lid surgery Cardiovascular Surgical History: Reports: None Respiratory Surgical History: Reports: Other (See Below) Other Respiratory Surgeries/Procedures: bronchial tube cancer, radiation and chemo 2015 lung collapsed with cancer treatment GI Surgical History: Reports: None Female Surgical History: Reports: Breast Biopsy Oncologic Surgical History: Reports: None Social & Family History - Family History Cardiac: Denies: CAD - Tobacco Use Tobacco Use Status *Q: Never Tobacco User Second Hand Smoke Exposure: No - Caffeine Use Caffeine Use: Reports: Coffee, Soda, Tea - Recreational Drug Use Recreational Drug Use: No H&P Review of Systems - Review of Systems: Review Of Systems: See Below Free Text/Narrative: A complete 12 point review of systems was obtained. Pertinent positives and negatives are noted in the history of present illness. All other systems were reviewed and were negative except as noted. Exam - Exam Exam: See Below - Vital Signs Vital Signs: Last Vital Signs Temp 36.3 C 07/26/20 11:56 Pulse 96 07/26/20 14:58 Resp 18 07/26/20 11:56 BP 125/77 07/26/20 14:58 Pulse Ox 96 07/26/20 14:58 Weight: 92 kg - Exam Quality Assessment: No: Supplemental Oxygen General: Alert, Oriented, Cooperative. No: Mild Distress HEENT: Conjunctiva Clear. No: Mucosa Moist & [place] (Dry), Scleral Icterus Neck: Supple, Trachea Midline, Lymphadenopathy (Shotty nodes on the right), Other (Swelling of the right submandibular gland and mild tenderness to palpation. The right submandibular area and right neck are warm to touch but there is no overlying erythema) Lungs: Clear to Auscultation, Normal Respiratory Effort Cardiovascular: Regular Rhythm, Tachycardia. No: Systolic Murmur GI/Abdominal Exam: Normal Bowel Sounds, Soft, Non-Tender, No Distention Back Exam: Normal Inspection, Full Range of Motion Extremities: No Pedal Edema. No: Increased Warmth Peripheral Pulses: 2+: Dorsalis Pedis (L), Dorsalis Pedis (R) Skin: Warm, Dry. No: Rash Neuro Extensive - Mental Status: Alert, Oriented x3, Nl Response to Commands Neuro Extensive - Motor, Sensory, Reflexes: No: Dysarthria, Abnormal Motor, Tremor Psychiatric: Alert, Normal Affect - Patient Data Lab Results Last 24 hrs: Laboratory Results - last 24 hr 07/26/20 07/26/20 Range/Units 12:48 12:48 Lactic Acid 1.4 (0.4-2.0) mmol/L C-Reactive Protein 10.39 H (0.0-0.3) mg/dL Imaging Impressions Last 24 hrs: CT scan of the neck-these images were personally reviewed-there is evidence for swelling of the right submandibular gland with significant surrounding inflammation and stranding. There is some right-sided cervical lymphadenopathy. No obvious abscess or discrete mass. No airway compromise at this time. Sepsis Event Note - Evaluation Sepsis Screening Result: No Definite Risk - Focused Exam Vital Signs: Vital Signs Temp Pulse Resp BP Pulse Ox 07/26/20 14:58 96 125/77 96 07/26/20 11:56 36.3 C 107 H 18 128/75 95 *Q Meaningful Use (ADM) - VTE Risk Assess *Q Each Risk Factor Represents 1 Point: Obesity ( BMI > 25 kg/m2) Total Score 1 Point Risk Factors: 1 Each Risk Factor Represents 2 Points: Malignancy (present or previous) Total Score 2 Point Risk Factors: 2 Each Risk Factor Represents 3 Points: Age 75 Years or Greater Total Score 3 Point Risk Factors: 3 Each Risk Factor Represents 5 Points: None Total Score 5 Point Risk Factors: 0 Venous Thromboembolism Risk Factor Score *Q: 6 - Problem List (1) Sialoadenitis of submandibular gland SNOMED Code(s): 531724476 ICD Code: K11.20 - SIALOADENITIS, UNSPECIFIED Status: Acute Current Visit: Yes (2) Essential hypertension SNOMED Code(s): 90915467 ICD Code: I10 - ESSENTIAL (PRIMARY) HYPERTENSION Status: Chronic Current Visit: Yes (3) Non-small cell lung cancer SNOMED Code(s): 444079355 ICD Code: C34.90 - MALIGNANT NEOPLASM OF UNSP PART OF UNSP BRONCHUS OR LUNG Status: Chronic Current Visit: Yes Problem Details: History of status post partial lung resection Qualifiers: Laterality: left Qualified Code(s): C34.92 - Malignant neoplasm of unspecified part of left bronchus or lung Problem List Initiated/Reviewed/Updated: Yes Orders Last 24hrs: Active Orders 24 hr Category Date Time Status Patient Status Manage Transfer [TRANSFER] Routine ADT 07/26/20 15:08 Ordered CULTURE BLOOD [BC] Urgent Lab 07/26/20 14:25 Received CULTURE BLOOD [BC] Urgent Lab 07/26/20 14:30 Received Sodium Chloride 0.9% [Normal Saline] 70 ml Med 07/26/20 13:15 Active IV ASDIRECTED Blood Culture x2 Reflex Set [OM.PC] Urgent Oth 07/26/20 14:15 Ordered Resuscitation Status Routine Resus Stat 07/26/20 15:11 Ordered Medication Orders Sodium Chloride (Normal Saline) 70 mls @ 3 mls/sec IV ASDIRECTED SHIRIN Stop: 07/26/20 16:00 Last Admin: 07/26/20 13:16 Dose: 3 mls/sec Documented by: ROSIE Assessment/Plan Comment:: ASSESSMENT AND PLAN - Right submandibular gland sialoadenitis-history of dry mouth since her chemo/radiation and I suspect this contributed to developing the infection and inflammation. She does not appear to be septic at this time but has not been able to eat or drink anything for more than [address] scan showed significant inflammation but no discrete abscess or stone in the duct. No indication for surgery at this time. -Antibiotic coverage with levofloxacin and clindamycin because of allergies -IV fluids overnight -Follow-up blood cultures -Lemon drops and Cepacol lozenges as needed -Symptomatic management of pain -ENT consultation if worsening or not improving Essential hypertension-blood pressure well controlled. -Continue home medications History of non-small cell lung cancer on the left-no issues since previous treatment Maintenance issues - -DVT prophylaxis-mechanical -GI prophylaxis-H2 malena -Nutrition-soft diet until pain improves -[place] catheter-not indicated CODE STATUS -full code Admission justification -this patient will be admitted for inpatient services and is medically appropriate meeting medical necessity for inpatient admission as outlined in my documentation. I reasonably expect the patient will require inpatient services that span a period time over 2 midnights. I reasonably expect this patient to be discharged or transferred within 96 hours after admission to the [facility]. Disposition -I anticipate discharge home after the hospital stay Primary care physician -Elyse Gloria M.D. - Mortality Measure Prognosis:: Good
[2020-07-26] MEDS ORDERED: Albuterol 0.083% 2.5 MG/3 ML Neb Soln NEB PRN (15:33)
[2020-07-26] MEDS ORDERED: Ondansetron 4 MG Tab.DIS PO PRN (15:33)
[2020-07-26] MEDS ORDERED: Ibuprofen 600 MG Tab PO PRN (15:33)
[2020-07-26] MEDS ORDERED: Benzocaine/Cetylpyridinium/Menthol Lozenge MUCMEM PRN (15:33)
[2020-07-26] MEDS ORDERED: Acetaminophen 325 MG Tab PO PRN (15:33)
[2020-07-26] MEDS ORDERED: Magnesium Hydroxide 400 MG/5 ML Susp 30 ML Cup PO PRN (15:33)
[2020-07-26] MEDS ORDERED: Ondansetron 4 MG/2 ML SDV IV PRN (15:33)
[2020-07-26] MEDS ORDERED: Sodium Chloride 0.9% 1,000 ML IV SCH (15:33)
[2020-07-26] MEDS: Simvastatin 20 MG Tab PO SCH (21:01)
[2020-07-26] MEDS: Lactobacillus Rhamnosus GG (Probiotic) Cap PO SCH (21:01)
[2020-07-27] MEDS: Melatonin 3 MG Tab PO PRN ×2 (00:20→21:44)
[2020-07-27] MEDS: Levothyroxine 88 MCG Tab PO SCH (07:36)
[2020-07-27] MEDS: Cetirizine 10 MG Tab PO SCH (09:01)
[2020-07-27] MEDS: Lactobacillus Rhamnosus GG (Probiotic) Cap PO SCH ×2 (09:02→20:52)
[2020-07-27] MEDS: Famotidine 20 MG Tab PO SCH (09:02)
[2020-07-27] MEDS: Aspirin 81 MG Tab.EC PO SCH (09:02)
[2020-07-27] MEDS: Vitamin B6-pyridOXINE 50 MG Tab PO SCH (09:02)
[2020-07-27] MEDS: Montelukast 10 MG Tab PO SCH (09:02)
[2020-07-27] MEDS: Fluticasone Propionate Nasal Spray 16 GM Bottle NASBOTH SCH (09:03)
[2020-07-27] MEDS: amLODIPine 5 MG Tab PO SCH (09:07)
[2020-07-27] MEDS: Metoprolol Succinate 25 MG Tab.ER PO SCH (09:07)
[2020-07-27] MEDS: Losartan 25 MG Tab PO SCH (09:07)
[2020-07-27] MEDS: Ipratropium 0.06% Nasal Spray 15 ML Bottle NASBOTH SCH (09:09)
--- NOTE | 2020-07-27 10:27 | PCM.PN ---
- General Info Date of Service: 07/27/20 Subjective Update: There were no acute events overnight. No fevers. Swelling and pain involving the right neck and jaw have improved compared to yesterday. She still has some discomfort with swallowing but not nearly as intense as yesterday. Mild nausea but no vomiting. Appetite is better today. Cultures are negative so far. Tolerating antibiotics. Functional Status: Reports: Pain Controlled, Tolerating Diet - Review of Systems General: Denies: Fever HEENT: Reports: Sore Throat, Other (neck swelling on the right ) - Patient Data Vitals - Most Recent: Last Vital Signs Temp 36.1 C 07/27/20 06:59 Pulse 79 07/27/20 09:07 Resp 18 07/27/20 06:59 BP 101/78 07/27/20 09:07 Pulse Ox 97 07/27/20 06:59 Weight - Most Recent: 91.626 kg I&O - Last 24 Hours: Intake & Output 07/26/20 07/27/20 07/27/20 22:59 06:59 14:59 Intake Total 500 1887 436 Balance 500 1887 436 Lab Results Last 24 Hours: Laboratory Results - last 24 hr 07/26/20 07/26/20 07/27/20 Range/Units 12:48 12:48 06:18 WBC 10.6 (4.5-11.0) K/uL RBC 4.20 (3.30-5.50) M/uL Hgb 12.5 (12.0-15.0) g/dL Hct 38.3 (36.0-48.0) % MCV 91 (80-98) fL MCH 30 (27-31) pg MCHC 33 (32-36) % Plt Count 227 (150-400) K/uL Sodium (140-148) mmol/L Potassium (3.6-5.2) mmol/L Chloride (100-108) mmol/L Carbon Dioxide (21-32) mmol/L Anion Gap (5.0-14.0) mmol/L BUN (7-18) mg/dL Creatinine (0.6-1.0) mg/dL Est Cr Clr Drug Dosing mL/min Estimated GFR (MDRD) (>60) Glucose (74-106) mg/dL Lactic Acid 1.4 (0.4-2.0) mmol/L Calcium (8.5-10.1) mg/dL C-Reactive Protein 10.39 H (0.0-0.3) mg/dL 07/27/20 Range/Units 06:18 WBC (4.5-11.0) K/uL RBC (3.30-5.50) M/uL Hgb (12.0-15.0) g/dL Hct (36.0-48.0) % MCV (80-98) fL MCH (27-31) pg MCHC (32-36) % Plt Count (150-400) K/uL Sodium 139 L (140-148) mmol/L Potassium 3.9 (3.6-5.2) mmol/L Chloride 104 (100-108) mmol/L Carbon Dioxide 25 (21-32) mmol/L Anion Gap 13.9 (5.0-14.0) mmol/L BUN 26 H (7-18) mg/dL Creatinine 0.6 (0.6-1.0) mg/dL Est Cr Clr Drug Dosing 73.93 mL/min Estimated GFR (MDRD) > 60 (>60) Glucose 115 H (74-106) mg/dL Lactic Acid (0.4-2.0) mmol/L Calcium 9.1 (8.5-10.1) mg/dL C-Reactive Protein (0.0-0.3) mg/dL Med Orders - Current: Current Medications Acetaminophen (Acetaminophen 325 Mg Tab) 650 mg PO Q4H PRN PRN Reason: Pain (Mild 1-3)/fever Albuterol (Albuterol 0.083% 2.5 Mg/3 Ml Neb Soln) 2.5 mg NEB Q4H PRN PRN Reason: Shortness Of Breath/wheezing Amlodipine Besylate (Amlodipine 5 Mg Tab) 5 mg PO DAILY [facility] Last Admin: 07/27/20 09:07 Dose: 5 mg Documented by: Aspirin (Aspirin 81 Mg Tab.Ec) 81 mg PO DAILY [facility] Last Admin: 07/27/20 09:02 Dose: 81 mg Documented by: Benzocaine/Menthol (Benzocaine/Cetylpyridinium/Menthol Lozenge) 1 lozenge MUCMEM Q2H PRN PRN Reason: Sore Throat Cetirizine HCl (Cetirizine 10 Mg Tab) 10 mg PO DAILY [facility] Last Admin: 07/27/20 09:01 Dose: 10 mg Documented by: Famotidine (Famotidine 20 Mg Tab) 40 mg PO DAILY [facility] Last Admin: 07/27/20 09:02 Dose: 40 mg Documented by: Fluticasone Propionate (Fluticasone Propionate Nasal [place] 16 Gm Bottle) 0 gm NASBOTH DAILY [facility] Last Admin: 07/27/20 09:03 Dose: 1 appful Documented by: Levofloxacin/Dextrose 500 mg/ (Premix) 100 mls @ 100 mls/hr IV Q24H [facility] Sodium Chloride (Normal Saline) 1,000 mls @ 125 mls/hr IV ASDIRECTED [facility] Last Admin: 07/27/20 00:52 Dose: 125 mls/hr Documented by: Clindamycin Phosphate 600 mg/ (Sodium Chloride) 54 mls @ 100 mls/hr IV Q8H [facility] Last Admin: 07/27/20 05:32 Dose: 100 mls/hr Documented by: Ibuprofen (Ibuprofen 600 Mg Tab) 600 mg PO Q6H PRN PRN Reason: Pain/Fever Ipratropium [place] (Ipratropium 0.06% Nasal [place] 15 Ml Bottle) 0 ml NASBOTH DAILY [facility] Last Admin: 07/27/20 09:09 Dose: Not Given Documented by: Ketorolac Tromethamine (Ketorolac 30 Mg/Ml Sdv) 15 mg IVPUSH Q6H PRN PRN Reason: Pain (moderate 4-6) Stop: 07/31/20 15:34 Lactobacillus Rhamnosus (Lactobacillus Rhamnosus Gg (Probiotic) Cap) 1 cap PO BID [facility] Last Admin: 07/27/20 09:02 Dose: 1 cap Documented by: Levothyroxine Sodium (Levothyroxine 88 Mcg Tab) 88 mcg PO ACBREAKFAST [facility] Last Admin: 07/27/20 07:36 Dose: 88 mcg Documented by: Losartan Potassium (Losartan 25 Mg Tab) 12.5 mg PO DAILY [facility] Last Admin: 07/27/20 09:07 Dose: 12.5 mg Documented by: Magnesium Hydroxide (Magnesium Hydroxide 400 Mg/5 Ml Susp 30 Ml Cup) 30 ml PO Q12H PRN PRN Reason: Constipation Melatonin (Melatonin 3 Mg Tab) 9 mg PO BEDTIME PRN PRN Reason: Sleep Last Admin: 07/27/20 00:20 Dose: 9 mg Documented by: Metoprolol Succinate (Metoprolol Succinate 25 Mg Tab.Er) 12.5 mg PO DAILY [facility] Last Admin: 07/27/20 09:07 Dose: 12.5 mg Documented by: Montelukast Sodium (Montelukast 10 Mg Tab) 10 mg PO DAILY [facility] Last Admin: 07/27/20 09:02 Dose: 10 mg Documented by: (Fluticasone/Umeclidin/Vilanter [ Trelegy Ellipta 100- 62.5-*Pom* 1 puff INH DAILY [facility] Last Admin: 07/27/20 08:20 Dose: 1 puff Documented by: Ondansetron HCl (Ondansetron 4 Mg/2 Ml Sdv) 4 mg IV Q6H PRN PRN Reason: Nausea/Vomiting Ondansetron HCl (Ondansetron 4 Mg Tab.Dis) 4 mg PO Q6H PRN PRN Reason: Nausea able to take PO Last Admin: 07/27/20 08:59 Dose: 4 mg Documented by: Pyridoxine HCl (Vitamin B6-Pyridoxine 50 Mg Tab) 100 mg PO DAILY [facility] Last Admin: 07/27/20 09:02 Dose: 100 mg Documented by: Senna/Docusate Sodium (Docusate Sodium/Sennosides 50-8.6 Mg Tab) 1 tab PO BID PRN PRN Reason: Constipation Simvastatin (Simvastatin 20 Mg Tab) 40 mg PO BEDTIME [facility] Last Admin: 07/26/20 21:01 Dose: 40 mg Documented by: Discontinued Medications Sodium Chloride (Normal Saline) 70 mls @ 3 mls/sec IV ASDIRECTED [facility] Stop: 07/26/20 16:00 Last Admin: 07/26/20 13:16 Dose: 3 mls/sec Documented by: Levofloxacin/Dextrose 500 mg/ (Premix) 100 mls @ 100 mls/hr IV ONETIME ONE Stop: 07/26/20 15:15 Last Admin: 07/26/20 15:05 Dose: 100 mls/hr Documented by: Clindamycin Phosphate 600 mg/ (Sodium Chloride) 54 mls @ 100 mls/hr IV Q8H [facility] Last Admin: 07/26/20 16:44 Dose: 100 mls/hr Documented by: Iopamidol (Iopamidol 612 Mg/Ml 500 Ml Multipack Bottle) 100 ml IV ONETIME ONE Stop: 07/26/20 13:05 Last Admin: 07/26/20 13:17 Dose: 100 ml Documented by: Sodium Chloride (Sodium Chloride 0.9% 10 Ml Syringe) 10 ml FLUSH ONETIME ONE Stop: 07/26/20 13:05 Last Admin: 07/26/20 13:16 Dose: 10 ml Documented by: - Exam Quality Assessment: No: Supplemental Oxygen General: Alert, Oriented, Cooperative, No Acute Distress Neck: Lymphadenopathy, Other (mild swelling right neck and right submandibular gland) Lungs: Normal Respiratory Effort Extremities: No Pedal Edema Skin: Warm, Dry. No: Rash Psy/Mental Status: Alert, Normal Affect - Patient Data Lab Results Last 24 hrs: Laboratory Results - last 24 hr 07/26/20 07/26/20 07/27/20 Range/Units 12:48 12:48 06:18 WBC 10.6 (4.5-11.0) K/uL RBC 4.20 (3.30-5.50) M/uL Hgb 12.5 (12.0-15.0) g/dL Hct 38.3 (36.0-48.0) % MCV 91 (80-98) fL MCH 30 (27-31) pg MCHC 33 (32-36) % Plt Count 227 (150-400) K/uL Sodium (140-148) mmol/L Potassium (3.6-5.2) mmol/L Chloride (100-108) mmol/L Carbon Dioxide (21-32) mmol/L Anion Gap (5.0-14.0) mmol/L BUN (7-18) mg/dL Creatinine (0.6-1.0) mg/dL Est Cr Clr Drug Dosing mL/min Estimated GFR (MDRD) (>60) Glucose (74-106) mg/dL Lactic Acid 1.4 (0.4-2.0) mmol/L Calcium (8.5-10.1) mg/dL C-Reactive Protein 10.39 H (0.0-0.3) mg/dL 07/27/20 Range/Units 06:18 WBC (4.5-11.0) K/uL RBC (3.30-5.50) M/uL Hgb (12.0-15.0) g/dL Hct (36.0-48.0) % MCV (80-98) fL MCH (27-31) pg MCHC (32-36) % Plt Count (150-400) K/uL Sodium 139 L (140-148) mmol/L Potassium 3.9 (3.6-5.2) mmol/L Chloride 104 (100-108) mmol/L Carbon Dioxide 25 (21-32) mmol/L Anion Gap 13.9 (5.0-14.0) mmol/L BUN 26 H (7-18) mg/dL Creatinine 0.6 (0.6-1.0) mg/dL Est Cr Clr Drug Dosing 73.93 mL/min Estimated GFR (MDRD) > 60 (>60) Glucose 115 H (74-106) mg/dL Lactic Acid (0.4-2.0) mmol/L Calcium 9.1 (8.5-10.1) mg/dL C-Reactive Protein (0.0-0.3) mg/dL Result Diagrams: 07/27/20 06:18 07/27/20 06:18 Sepsis Event Note - Evaluation Sepsis Screening Result: No Definite Risk - Focused Exam Vital Signs: Vital Signs Temp Pulse Pulse Resp BP BP Pulse Ox 07/27/20 09:07 79 101/78 07/27/20 06:59 36.1 C 79 18 96/51 L 97 07/27/20 05:00 35.8 C L 81 18 111/54 L 96 07/26/20 22:50 35.9 C L 100 16 105/64 94 L - Problem List & Annotations (1) Sialoadenitis of submandibular gland SNOMED Code(s): 220439508 Code(s): K11.20 - SIALOADENITIS, UNSPECIFIED Status: Acute Current Visit: Yes (2) Essential hypertension SNOMED Code(s): 21609085 Code(s): I10 - ESSENTIAL (PRIMARY) HYPERTENSION Status: Chronic Current Visit: Yes (3) Non-small cell lung cancer SNOMED Code(s): 758748297 Code(s): C34.90 - MALIGNANT NEOPLASM OF UNSP PART OF UNSP BRONCHUS OR LUNG Status: Chronic Current Visit: Yes Qualifiers: Laterality: left Qualified Code(s): C34.92 - Malignant neoplasm of unspecified part of left bronchus or lung Annotation/Comment:: History of status post partial lung resection - Problem List Review Problem List Initiated/Reviewed/Updated: Yes - My Orders Last 24 Hours: My Active Orders 07/26/20 15:11 Resuscitation Status Routine 07/26/20 15:33 Acetaminophen [TylenoL] 650 mg PO Q4H PRN Albuterol [Proventil Neb Soln] 2.5 mg NEB Q4H PRN Benzocaine/Cetylpyrd/Menthol [Cepacol Sore Throat] 1 lozenge MUCMEM Q2H PRN Docusate Sodium/Sennosides [Senna Plus] 1 tab PO BID PRN Ibuprofen [Motrin] 600 mg PO Q6H PRN Ketorolac [Toradol] 15 mg IVPUSH Q6H PRN Magnesium Hydroxide [Milk of Magnesia] 30 ml PO Q12H PRN Melatonin 9 mg PO BEDTIME PRN Ondansetron [Zofran ODT] 4 mg PO Q6H PRN Ondansetron [Zofran] 4 mg IV Q6H PRN Sodium Chloride 0.9% [Normal Saline] 1,000 ml IV ASDIRECTED 07/26/20 15:33 Patient Status [ADT] Routine Antiembolic Devices [RC] .Routine Intake and Output [RC] QSHIFT Notify Provider Vital Signs [RC] ASDIRECTED Oxygen Therapy [RC] PRN RT Aerosol Therapy [RC] ASDIRECTED Up ad Sharmaine [RC] ASDIRECTED VTE/DVT Education [RC] Per Unit Routine Vital Signs [RC] Q4H Sequential Compression Device [OM.PC] Routine 07/26/20 Dinner Mechanical Soft Diet [DIET] 07/26/20 21:00 Clindamycin Phosphate [Cleocin] 600 mg Sodium Chloride 0.9% [Normal Saline] 50 ml IV Q8H Lactobacillus Rhamnosus GG [Culturelle] 1 cap PO BID Simvastatin [Zocor] 40 mg PO BEDTIME 07/27/20 07:30 Levothyroxine [Synthroid] 88 mcg PO ACBREAKFAST 07/27/20 09:00 Aspirin [Halfprin] 81 mg PO DAILY Cetirizine [ZyrTEC] 10 mg PO DAILY Famotidine [Pepcid] 40 mg PO DAILY Fluticasone Propionate [Flonase] 0 gm NASBOTH DAILY Fluticasone/Umeclidin/Vilanter [Trelegy Ellipta 100-62.5-25] 1 puff INH DAILY Ipratropium [Atrovent 0.06% Nasal [place]] 0 ml NASBOTH DAILY Losartan [Cozaar] 12.5 mg PO DAILY Metoprolol Succinate [Toprol XL] 12.5 mg PO DAILY Montelukast [Singulair] 10 mg PO DAILY Vitamin B6-pyridOXINE 100 mg PO DAILY amLODIPine [Norvasc] 5 mg PO DAILY 07/27/20 10:25 Convert IV to Saline Lock [OM.PC] Routine 07/27/20 15:00 Levofloxacin/Dextrose 5%-Water [Levaquin in D5W 500 MG/100 ML] 500 mg Premix Bag 1 bag IV Q24H 07/28/20 05:00 CBC W/O DIFF,HEMOGRAM [HEME] Timed (1) - Plan Plan:: ASSESSMENT AND PLAN - Right submandibular gland sialoadenitis-less pain in the neck as well as with swallowing. White blood cell count has normalized from yesterday. No fevers. Swelling is better but still moderate swelling. -Antibiotic coverage with levofloxacin and clindamycin because of allergies -Saline lock IV -Follow-up blood cultures -Lemon drops and Cepacol lozenges as needed -Symptomatic management of pain -ENT consultation if worsening or not improving Essential hypertension-blood pressure well controlled. -Continue home medications History of non-small cell lung cancer on the left-no issues since previous treatment Maintenance issues - -DVT prophylaxis-mechanical -GI prophylaxis-H2 malena -Nutrition-soft diet until pain improves Disposition -I anticipate discharge home after the hospital stay, possibly tomorrow if stable overnight and cultures remain negative. Primary care physician -Elyse Gloria M.D.
[2020-07-27] MEDS: Levofloxacin/Dextrose 5%-Water 500 MG in Premix Bag 1 BAG IV SCH (15:06)
[2020-07-27] MEDS: Simvastatin 20 MG Tab PO SCH (20:52)
[2020-07-28] MEDS: Levothyroxine 88 MCG Tab PO SCH (07:54)
[2020-07-28] MEDS: Fluticasone Propionate Nasal Spray 16 GM Bottle NASBOTH SCH (09:26)
[2020-07-28] MEDS: Lactobacillus Rhamnosus GG (Probiotic) Cap PO SCH ×2 (09:26→21:11)
[2020-07-28] MEDS: Montelukast 10 MG Tab PO SCH (09:27)
[2020-07-28] MEDS: Famotidine 20 MG Tab PO SCH (09:27)
[2020-07-28] MEDS: Cetirizine 10 MG Tab PO SCH (09:27)
[2020-07-28] MEDS: Vitamin B6-pyridOXINE 50 MG Tab PO SCH (09:27)
[2020-07-28] MEDS: Aspirin 81 MG Tab.EC PO SCH (09:27)
[2020-07-28] MEDS: Metoprolol Succinate 25 MG Tab.ER PO SCH (09:49)
[2020-07-28] MEDS: Losartan 25 MG Tab PO SCH (09:50)
[2020-07-28] MEDS: amLODIPine 5 MG Tab PO SCH (09:50)
--- NOTE | 2020-07-28 10:09 | PCM.PN ---
- General Info Date of Service: 07/28/20 Subjective Update: There were no acute events overnight. Neck pain is about the same as yesterday. Swallowing pain is about the same as yesterday. Swelling is a little better to day. She has not had any fevers. No significant nausea. Strength is better today. Cultures are negative so far. Patient has had limited intake of food because of the swallowing pain but otherwise is doing well. Functional Status: Reports: Pain Controlled, Tolerating Diet - Review of Systems General: Denies: Fever HEENT: Reports: Other (painful swallowing) - Patient Data Vitals - Most Recent: Last Vital Signs Temp 36.3 C 07/28/20 07:00 Pulse 70 07/28/20 09:49 Resp 18 07/28/20 07:00 BP 101/55 L 07/28/20 09:50 Pulse Ox 93 L 07/28/20 07:00 Weight - Most Recent: 91.626 kg I&O - Last 24 Hours: Intake & Output 07/27/20 07/28/20 07/28/20 22:59 06:59 14:59 Intake Total 650 600 380 Balance 650 600 380 Lab Results Last 24 Hours: Laboratory Results - last 24 hr 07/28/20 Range/Units 04:59 WBC 6.7 (4.5-11.0) K/uL RBC 3.98 (3.30-5.50) M/uL Hgb 11.8 L (12.0-15.0) g/dL Hct 36.7 (36.0-48.0) % MCV 92 (80-98) fL MCH 30 (27-31) pg MCHC 32 (32-36) % Plt Count 242 (150-400) K/uL Reyes Results Last 24 Hours: Microbiology 07/26/20 14:30 Aerobic Blood Culture - Preliminary Blood - Arm, Right NO GROWTH AFTER 1 DAY Anaerobic Blood Culture - Preliminary NO GROWTH AFTER 1 DAY 07/26/20 14:25 Aerobic Blood Culture - Preliminary Blood - Arm, Left NO GROWTH AFTER 1 DAY Anaerobic Blood Culture - Preliminary NO GROWTH AFTER 1 DAY Med Orders - Current: Current Medications Acetaminophen (Acetaminophen 325 Mg Tab) 650 mg PO Q4H PRN PRN Reason: Pain (Mild 1-3)/fever Albuterol (Albuterol 0.083% 2.5 Mg/3 Ml Neb Soln) 2.5 mg NEB Q4H PRN PRN Reason: Shortness Of Breath/wheezing Amlodipine Besylate (Amlodipine 5 Mg Tab) 5 mg PO DAILY [facility] Last Admin: 07/28/20 09:50 Dose: 5 mg Documented by: Aspirin (Aspirin 81 Mg Tab.Ec) 81 mg PO DAILY [facility] Last Admin: 07/28/20 09:27 Dose: 81 mg Documented by: Benzocaine/Menthol (Benzocaine/Cetylpyridinium/Menthol Lozenge) 1 lozenge MUCMEM Q2H PRN PRN Reason: Sore Throat Cetirizine HCl (Cetirizine 10 Mg Tab) 10 mg PO DAILY [facility] Last Admin: 07/28/20 09:27 Dose: 10 mg Documented by: Famotidine (Famotidine 20 Mg Tab) 40 mg PO DAILY [facility] Last Admin: 07/28/20 09:27 Dose: 40 mg Documented by: Fluticasone Propionate (Fluticasone Propionate Nasal [place] 16 Gm Bottle) 0 gm NASBOTH DAILY [facility] Last Admin: 07/28/20 09:26 Dose: 2 appful Documented by: Levofloxacin/Dextrose 500 mg/ (Premix) 100 mls @ 100 mls/hr IV Q24H [facility] Last Admin: 07/27/20 15:06 Dose: 100 mls/hr Documented by: Clindamycin Phosphate 600 mg/ (Sodium Chloride) 54 mls @ 100 mls/hr IV Q8H [facility] Last Admin: 07/28/20 04:11 Dose: 100 mls/hr Documented by: Ibuprofen (Ibuprofen 600 Mg Tab) 600 mg PO Q6H PRN PRN Reason: Pain/Fever Ipratropium [place] (Ipratropium 0.06% Nasal [place] 15 Ml Bottle) 0 ml NASBOTH DAILY [facility] Last Admin: 07/27/20 09:09 Dose: Not Given Documented by: Ketorolac Tromethamine (Ketorolac 30 Mg/Ml Sdv) 15 mg IVPUSH Q6H PRN PRN Reason: Pain (moderate 4-6) Stop: 07/31/20 15:34 Lactobacillus Rhamnosus (Lactobacillus Rhamnosus Gg (Probiotic) Cap) 1 cap PO BID [facility] Last Admin: 07/28/20 09:26 Dose: 1 cap Documented by: Levothyroxine Sodium (Levothyroxine 88 Mcg Tab) 88 mcg PO ACBREAKFAST [facility] Last Admin: 07/28/20 07:54 Dose: 88 mcg Documented by: Losartan Potassium (Losartan 25 Mg Tab) 12.5 mg PO DAILY [facility] Last Admin: 07/28/20 09:50 Dose: 12.5 mg Documented by: Magnesium Hydroxide (Magnesium Hydroxide 400 Mg/5 Ml Susp 30 Ml Cup) 30 ml PO Q12H PRN PRN Reason: Constipation Melatonin (Melatonin 3 Mg Tab) 9 mg PO BEDTIME PRN PRN Reason: Sleep Last Admin: 07/27/20 21:44 Dose: 9 mg Documented by: Metoprolol Succinate (Metoprolol Succinate 25 Mg Tab.Er) 12.5 mg PO DAILY [facility] Last Admin: 07/28/20 09:49 Dose: 12.5 mg Documented by: Montelukast Sodium (Montelukast 10 Mg Tab) 10 mg PO DAILY [facility] Last Admin: 07/28/20 09:27 Dose: 10 mg Documented by: (Fluticasone/Umeclidin/Vilanter [ Trelegy Ellipta 100- 62.5-*Pom* 1 puff INH DA RONY [facility] Last Admin: 07/28/20 08:31 Dose: 1 puff Documented by: Ondansetron HCl (Ondansetron 4 Mg/2 Ml Sdv) 4 mg IV Q6H PRN PRN Reason: Nausea/Vomiting Ondansetron HCl (Ondansetron 4 Mg Tab.Dis) 4 mg PO Q6H PRN PRN Reason: Nausea able to take PO Last Admin: 07/27/20 08:59 Dose: 4 mg Documented by: Pyridoxine HCl (Vitamin B6-Pyridoxine 50 Mg Tab) 100 mg PO DAILY [facility] Last Admin: 07/28/20 09:27 Dose: 100 mg Documented by: Senna/Docusate Sodium (Docusate Sodium/Sennosides 50-8.6 Mg Tab) 1 tab PO BID PRN PRN Reason: Constipation Simvastatin (Simvastatin 20 Mg Tab) 40 mg PO BEDTIME [facility] Last Admin: 07/27/20 20:52 Dose: 40 mg Documented by: Discontinued Medications Sodium Chloride (Normal Saline) 70 mls @ 3 mls/sec IV ASDIRECTED [facility] Stop: 07/26/20 16:00 Last Admin: 07/26/20 13:16 Dose: 3 mls/sec Documented by: Levofloxacin/Dextrose 500 mg/ (Premix) 100 mls @ 100 mls/hr IV ONETIME ONE Stop: 07/26/20 15:15 Last Admin: 07/26/20 15:05 Dose: 100 mls/hr Documented by: Clindamycin Phosphate 600 mg/ (Sodium Chloride) 54 mls @ 100 mls/hr IV Q8H [facility] Last Admin: 07/26/20 16:44 Dose: 100 mls/hr Documented by: Sodium Chloride (Normal Saline) 1,000 mls @ 125 mls/hr IV ASDIRECTED [facility] Last Admin: 07/27/20 00:52 Dose: 125 mls/hr Documented by: Iopamidol (Iopamidol 612 Mg/Ml 500 Ml Multipack Bottle) 100 ml IV ONETIME ONE Stop: 07/26/20 13:05 Last Admin: 07/26/20 13:17 Dose: 100 ml Documented by: Sodium Chloride (Sodium Chloride 0.9% 10 Ml Syringe) 10 ml FLUSH ONETIME ONE Stop: 07/26/20 13:05 Last Admin: 07/26/20 13:16 Dose: 10 ml Documented by: - Exam Quality Assessment: No: Supplemental Oxygen General: Alert, Oriented, No Acute Distress Neck: Supple, Other (mild swelling right neck and moderate swelling right submandibular gland. Moderate ttp R submandibular gland) Lungs: Normal Respiratory Effort GI/Abdominal Exam: Soft, No Distention Extremities: No Pedal Edema Psy/Mental Status: Alert, Normal Affect - Patient Data Lab Results Last 24 hrs: Laboratory Results - last 24 hr 07/28/20 Range/Units 04:59 WBC 6.7 (4.5-11.0) K/uL RBC 3.98 (3.30-5.50) M/uL Hgb 11.8 L (12.0-15.0) g/dL Hct 36.7 (36.0-48.0) % MCV 92 (80-98) fL MCH 30 (27-31) pg MCHC 32 (32-36) % Plt Count 242 (150-400) K/uL Result Diagrams: 07/28/20 04:59 07/27/20 06:18 Reyes Results Last 24 hrs: Microbiology 07/26/20 14:30 Aerobic Blood Culture - Preliminary Blood - Arm, Right NO GROWTH AFTER 1 DAY Anaerobic Blood Culture - Preliminary NO GROWTH AFTER 1 DAY 07/26/20 14:25 Aerobic Blood Culture - Preliminary Blood - Arm, Left NO GROWTH AFTER 1 DAY Anaerobic Blood Culture - Preliminary NO GROWTH AFTER 1 DAY Sepsis Event Note - Evaluation Sepsis Screening Result: No Definite Risk - Focused Exam Vital Signs: Vital Signs Temp Pulse Pulse Resp BP BP Pulse Ox 07/28/20 09:50 101/55 L 07/28/20 09:49 70 101/55 L 07/28/20 07:00 36.3 C 66 18 101/55 L 93 L 07/28/20 04:00 36.4 C 66 18 100/54 L 97 07/27/20 22:45 36.5 C 82 15 105/57 L 95 - Problem List & Annotations (1) Sialoadenitis of submandibular gland SNOMED Code(s): 044488529 Code(s): K11.20 - SIALOADENITIS, UNSPECIFIED Status: Acute Current Visit: Yes (2) Essential hypertension SNOMED Code(s): 19260500 Code(s): I10 - ESSENTIAL (PRIMARY) HYPERTENSION Status: Chronic Current Visit: Yes (3) Non-small cell lung cancer SNOMED Code(s): 021964236 Code(s): C34.90 - MALIGNANT NEOPLASM OF UNSP PART OF UNSP BRONCHUS OR LUNG Status: Chronic Current Visit: Yes Qualifiers: Laterality: left Qualified Code(s): C34.92 - Malignant neoplasm of unspecified part of left bronchus or lung Annotation/Comment:: History of status post partial lung resection - Problem List Review Problem List Initiated/Reviewed/Updated: Yes - My Orders Last 24 Hours: My Active Orders 07/27/20 10:25 Convert IV to Saline Lock [OM.PC] Routine 07/27/20 15:00 Levofloxacin/Dextrose 5%-Water [Levaquin in D5W 500 MG/100 ML] 500 mg Premix Bag 1 bag IV Q24H - Plan Plan:: ASSESSMENT AND PLAN - Right submandibular gland sialoadenitis-less pain in the neck as well as with swallowing. White blood cell count remains normal. Swelling better but pain persistent. Patient concerned about intake ability because of the pain but otherwise doing well. -Antibiotic coverage with levofloxacin and clindamycin because of allergies -Saline lock IV -Follow-up blood cultures -Lemon drops and Cepacol lozenges as needed -Symptomatic management of pain -ENT consultation if worsening or not improving Essential hypertension-blood pressure well controlled. -Continue home medications History of non-small cell lung cancer on the left-no issues since previous treatment Maintenance issues - -DVT prophylaxis-mechanical -GI prophylaxis-H2 malena -Nutrition-soft diet until pain improves Disposition -I anticipate discharge home after the hospital stay, probably tomorrow morning if pain improves overnight Primary care physician -Elyse Gloria M.D.
[2020-07-28] MEDS: Ketorolac 30 MG/ML SDV IVPUSH PRN (13:56)
[2020-07-28] MEDS: Levofloxacin/Dextrose 5%-Water 500 MG in Premix Bag 1 BAG IV SCH (14:50)
[2020-07-28] MEDS: Ipratropium 0.06% Nasal Spray 15 ML Bottle NASBOTH SCH (16:23)
[2020-07-28] MEDS: Simvastatin 20 MG Tab PO SCH (21:12)
[2020-07-28] MEDS: Melatonin 3 MG Tab PO PRN (21:51)
[2020-07-29] MEDS: Levothyroxine 88 MCG Tab PO SCH (08:17)
[2020-07-29] MEDS: Losartan 25 MG Tab PO SCH (08:18)
[2020-07-29] MEDS: Lactobacillus Rhamnosus GG (Probiotic) Cap PO SCH (08:19)
[2020-07-29] MEDS: Aspirin 81 MG Tab.EC PO SCH (08:20)
[2020-07-29] MEDS: Fluticasone Propionate Nasal Spray 16 GM Bottle NASBOTH SCH (08:20)
[2020-07-29] MEDS: amLODIPine 5 MG Tab PO SCH (08:21)
[2020-07-29] MEDS: Famotidine 20 MG Tab PO SCH (08:22)
[2020-07-29] MEDS: Montelukast 10 MG Tab PO SCH (08:23)
[2020-07-29] MEDS: Metoprolol Succinate 25 MG Tab.ER PO SCH (08:24)
[2020-07-29] MEDS: Vitamin B6-pyridOXINE 50 MG Tab PO SCH (08:25)
[2020-07-29] MEDS: Cetirizine 10 MG Tab PO SCH (08:25)
[2020-07-29 08:26] VITALS: BP 115/54; PULSE 67
[2020-07-29] MEDS: Ipratropium 0.06% Nasal Spray 15 ML Bottle NASBOTH SCH (08:26)
--- NOTE | 2020-07-29 10:24 | PCM.DCSUM1 ---
Discharge Summary - Hospital Course Brief History: 80-year-old female with history of lung cancer status post resection who presented with progressive pain, swelling and redness involving her right neck. She was admitted for management of submandibular sialoadenitis. Diagnosis: Stroke: No - Discharge Data Discharge Date: 07/29/20 Discharge Disposition: Home, Self-Care 01 Condition: Good - Referral to Home Health Primary Care Physician: Elyse Morrison PA-C - Discharge Diagnosis/Problem(s) (1) Sialoadenitis of submandibular gland SNOMED Code(s): 677079151 ICD Code: K11.20 - SIALOADENITIS, UNSPECIFIED Status: Acute (2) Essential hypertension SNOMED Code(s): 21884644 ICD Code: I10 - ESSENTIAL (PRIMARY) HYPERTENSION Status: Chronic (3) Non-small cell lung cancer SNOMED Code(s): 323975136 ICD Code: C34.90 - MALIGNANT NEOPLASM OF UNSP PART OF UNSP BRONCHUS OR LUNG Status: Chronic Problem Details: History of status post partial lung resection Qualifiers: Laterality: left Qualified Code(s): C34.92 - Malignant neoplasm of unspecified part of left bronchus or lung - Patient Summary/Data Hospital Course: Minna presented to the emergency room with redness, pain and swelling in her right neck as well as significant odynophagia. She had not been able to eat for the last couple of days. Work-up in the emergency room revealed a white blood cell count of 22,000. CT scan of the neck showed significant swelling and stranding around the right submandibular gland as well as some lymphadenopathy in the right neck. There was concern for infection. She was started on levofloxacin and clindamycin and admitted to the hospital for further management of sialoadenitis. Cultures were obtained prior to admission. She did receive IV fluids overnight. By the morning after admission her pain and swelling have improved a little bit. She is able to swallow liquids and some yogurt but not much more than that. Cultures remain negative. She did not have any fevers. Over the next couple of days we saw steady improvement in the pain and swelling. The erythema resolved. She is now able to eat some soft foods. Her pain has been very well controlled. She has not had any fevers. Her cultures have all remained negative. She has been using lemon drops. She has been up and walking around with normalization of her strength. She feels well enough to go home at this time. The plan is for her to stay on the levofloxacin and clindamycin. This regimen was chosen because of multiple allergies. She has tolerated it well. I did encourage her to use a probiotic after hospital discharge. She has early follow-up planned. She will continue to maintain hydration and use her lemon drops. - Patient Instructions Diet: Regular Diet as Tolerated Activity: As Tolerated Showering/Bathing: May Shower Notify Provider of: Fever, Increased Pain Other/Special Instructions: 1. You were in the hospital for management of an infection involving your right submandibular salivary gland. Your condition is improving with antibiotic therapy and IV fluid hydration. We did not determine a causative bacteria but since you have improved with antibiotics provided here in the hospital we will continue to use these after hospital discharge. Please take levofloxacin 500 mg once daily at 2 PM for 4 doses. Your first dose outside of the hospital will be due today. Please also take clindamycin 450 mg 3 times daily. Your first dose outside of the hospital will be due around 2 PM today. It is important to maintain adequate hydration to keep the saliva flowing and avoid blockages in the salivary ducts. I recommend you drink at least 48 and preferably 64 ounces of water each day. Using hard candies and especially tart candies such as lemon drops can improve salivary flow and reduce the risk as well. 2. Continue your usual medications as previously prescribed. 3. Follow up as scheduled with your primary provider. Please seek medical attention if you have fever greater than 101, increasing pain/swelling in your neck or if your throat pain increases significantly. - Discharge Plan *PRESCRIPTION DRUG MONITORING PROGRAM REVIEWED*: Not Applicable *COPY OF PRESCRIPTION DRUG MONITORING REPORT IN PATIENT SEAN: Not Applicable Prescriptions/Med Rec: Clindamycin HCl 450 mg PO TID #42 capsule Levofloxacin 500 mg PO Q24H #4 tablet Home Medications: Home Meds Aspirin [Halfprin] 81 mg PO DAILY 06/26/14 [History] Cholecalciferol (Vitamin D3) [Vitamin D3] 1,000 unit PO DAILY 06/26/14 [History] Multivitamin [Multi-Vitamin Daily] 1 each PO DAILY 06/26/14 [History] Albuterol Sulfate [Proair Hfa] 1 - 2 puff IH Q4H PRN 04/04/17 [History] Calcium Carb, Citrate/Vit D3 [Calcium + D3 ER Tablet] 1 tab PO DAILY 04/04/17 [History] Cetirizine [ZyrTEC] 10 mg PO DAILY 04/04/17 [History] Docusate Sodium [Colace] 100 mg PO DAILY 04/04/17 [History] Fluorometholone [Fluorometholone 0.1% Ophth Susp] 1 drop EYEBOTH BID PRN 04/04/17 [History] Fluticasone Propionate [Flonase] 2 spray JACINTO DAILY 04/04/17 [History] Pyridoxine HCl (Vitamin B6) [Vitamin B-6] 100 mg PO DAILY 04/04/17 [History] amLODIPine Besylate [Amlodipine Besylate] 5 mg PO DAILY 05/04/17 [History] Levothyroxine [Synthroid] 88 mcg PO QAM 10/11/17 [History] Simvastatin [Zocor] 40 mg PO BEDTIME 10/11/17 [History] Furosemide [Lasix] 20 mg PO DAILY PRN 10/08/18 [History] Losartan [Cozaar] 12.5 mg PO DAILY 10/08/18 [History] Metoprolol Succinate [Toprol XL] 12.5 mg PO DAILY 10/08/18 [History] Nitroglycerin 0.4 mg SL ASDIRECTED 10/08/18 [History] Famotidine 40 mg PO DAILY 06/01/20 [History] Fluticasone/Umeclidin/Vilanter [Trelegy Ellipta 100-62.5-25] 1 puff INH DAILY 06/01/20 [History] Montelukast [Singulair] 10 mg PO DAILY 06/01/20 [History] Albuterol Sulfate 3 ml IH Q6H PRN 07/12/20 [History] Ipratropium [Atrovent 0.06% Nasal [place]] 2 spray NASBOTH DAILY 07/12/20 [History] Clindamycin HCl 450 mg PO TID #42 capsule 07/29/20 [Rx] Levofloxacin 500 mg PO Q24H #4 tablet 07/29/20 [Rx] Oxygen Therapy Mode: Room Air Patient Handouts: Salivary Gland Infection, Clindamycin capsules, Levofloxacin tablets Referrals: Elyse Morrison PA-C [Primary Care Provider] - 08/02/20 2:00 pm (Please arrive 15 minutes early to register for your appointment.) - Discharge Summary/Plan Comment DC Time >30 min.: No - Patient Data Vitals - Most Recent: Last Vital Signs Temp 36.3 C 07/29/20 07:00 Pulse 67 07/29/20 08:24 Resp 18 07/29/20 07:00 BP 115/54 L 07/29/20 08:24 Pulse Ox 96 07/29/20 07:00 Weight - Most Recent: 91.626 kg I&O - Last 24 hours: Intake & Output 07/28/20 07/29/20 07/29/20 22:59 06:59 14:59 Intake Total 450 50 240 Balance 450 50 240 CONNOR Results - Last 24 hrs: Microbiology 07/26/20 14:30 Aerobic Blood Culture - Preliminary Blood - Arm, Right NO GROWTH AFTER 2 DAYS Anaerobic Blood Culture - Preliminary NO GROWTH AFTER 2 DAYS 07/26/20 14:25 Aerobic Blood Culture - Preliminary Blood - Arm, Left NO GROWTH AFTER 2 DAYS Anaerobic Blood Culture - Preliminary NO GROWTH AFTER 2 DAYS Med Orders - Current: Current Medications Acetaminophen (Acetaminophen 325 Mg Tab) 650 mg PO Q4H PRN PRN Reason: Pain (Mild 1-3)/fever Albuterol (Albuterol 0.083% 2.5 Mg/3 Ml Neb Soln) 2.5 mg NEB Q4H PRN PRN Reason: Shortness Of Breath/wheezing Amlodipine Besylate (Amlodipine 5 Mg Tab) 5 mg PO DAILY [facility] Last Admin: 07/29/20 08:21 Dose: 5 mg Documented by: Aspirin (Aspirin 81 Mg Tab.Ec) 81 mg PO DAILY [facility] Last Admin: 07/29/20 08:20 Dose: 81 mg Documented by: Benzocaine/Menthol (Benzocaine/Cetylpyridinium/Menthol Lozenge) 1 lozenge MUCMEM Q2H PRN PRN Reason: Sore Throat Cetirizine HCl (Cetirizine 10 Mg Tab) 10 mg PO DAILY [facility] Last Admin: 07/29/20 08:25 Dose: 10 mg Documented by: Famotidine (Famotidine 20 Mg Tab) 40 mg PO DAILY [facility] Last Admin: 07/29/20 08:22 Dose: 40 mg Documented by: Fluticasone Propionate (Fluticasone Propionate Nasal [place] 16 Gm Bottle) 0 gm NASBOTH DAILY [facility] Last Admin: 07/29/20 08:20 Dose: 2 appful Documented by: Levofloxacin/Dextrose 500 mg/ (Premix) 100 mls @ 100 mls/hr IV Q24H [facility] Last Admin: 07/28/20 14:50 Dose: 100 mls/hr Documented by: Clindamycin Phosphate 600 mg/ (Sodium Chloride) 54 mls @ 100 mls/hr IV Q8H [facility] Last Admin: 07/29/20 05:15 Dose: 100 mls/hr Documented by: Ibuprofen (Ibuprofen 600 Mg Tab) 600 mg PO Q6H PRN PRN Reason: Pain/Fever Ipratropium [place] (Ipratropium 0.06% Nasal [place] 15 Ml Bottle) 0 ml NASBOTH DAILY [facility] Last Admin: 07/29/20 08:26 Dose: Not Given Documented by: Ketorolac Tromethamine (Ketorolac 30 Mg/Ml Sdv) 15 mg IVPUSH Q6H PRN PRN Reason: Pain (moderate 4-6) Stop: 07/31/20 15:34 Last Admin: 07/28/20 13:56 Dose: 15 mg Documented by: Lactobacillus Rhamnosus (Lactobacillus Rhamnosus Gg (Probiotic) Cap) 1 cap PO BID [facility] Last Admin: 07/29/20 08:19 Dose: 1 cap Documented by: Levothyroxine Sodium (Levothyroxine 88 Mcg Tab) 88 mcg PO ACBREAKFAST [facility] Last Admin: 07/29/20 08:17 Dose: 88 mcg Documented by: Losartan Potassium (Losartan 25 Mg Tab) 12.5 mg PO DAILY [facility] Last Admin: 07/29/20 08:18 Dose: 12.5 mg Documented by: Magnesium Hydroxide (Magnesium Hydroxide 400 Mg/5 Ml Susp 30 Ml Cup) 30 ml PO Q12H PRN PRN Reason: Constipation Melatonin (Melatonin 3 Mg Tab) 9 mg PO BEDTIME PRN PRN Reason: Sleep Last Admin: 07/28/20 21:51 Dose: 9 mg Documented by: Metoprolol Succinate (Metoprolol Succinate 25 Mg Tab.Er) 12.5 mg PO DAILY [facility] Last Admin: 07/29/20 08:24 Dose: 12.5 mg Documented by: Montelukast Sodium (Montelukast 10 Mg Tab) 10 mg PO DAILY [facility] Last Admin: 07/29/20 08:23 Dose: 10 mg Documented by: (Fluticasone/Umeclidin/Vilanter [ Trelegy Ellipta 100- 62.5-*Pom* 1 puff INH DAILY [facility] Last Admin: 07/29/20 08:23 Dose: 1 puff Documented by: Ondansetron HCl (Ondansetron 4 Mg/2 Ml Sdv) 4 mg IV Q6H PRN PRN Reason: Nausea/Vomiting Ondansetron HCl (Ondansetron 4 Mg Tab.Dis) 4 mg PO Q6H PRN PRN Reason: Nausea able to take PO Last Admin: 07/27/20 08:59 Dose: 4 mg Documented by: Pyridoxine HCl (Vitamin B6-Pyridoxine 50 Mg Tab) 100 mg PO DAILY [facility] Last Admin: 07/29/20 08:25 Dose: 100 mg Documented by: Senna/Docusate Sodium (Docusate Sodium/Sennosides 50-8.6 Mg Tab) 1 tab PO BID PRN PRN Reason: Constipation Simvastatin (Simvastatin 20 Mg Tab) 40 mg PO BEDTIME [facility] Last Admin: 07/28/20 21:12 Dose: 40 mg Documented by: Discontinued Medications Sodium Chloride (Normal Saline) 70 mls @ 3 mls/sec IV ASDIRECTED [facility] Stop: 07/26/20 16:00 Last Admin: 07/26/20 13:16 Dose: 3 mls/sec Documented by: Levofloxacin/Dextrose 500 mg/ (Premix) 100 mls @ 100 mls/hr IV ONETIME ONE Stop: 07/26/20 15:15 Last Admin: 07/26/20 15:05 Dose: 100 mls/hr Documented by: Clindamycin Phosphate 600 mg/ (Sodium Chloride) 54 mls @ 100 mls/hr IV Q8H [facility] Last Admin: 07/26/20 16:44 Dose: 100 mls/hr Documented by: Sodium Chloride (Normal Saline) 1,000 mls @ 125 mls/hr IV ASDIRECTED [facility] Last Admin: 07/27/20 00:52 Dose: 125 mls/hr Documented by: Iopamidol (Iopamidol 612 Mg/Ml 500 Ml Multipack Bottle) 100 ml IV ONETIME ONE Stop: 07/26/20 13:05 Last Admin: 07/26/20 13:17 Dose: 100 ml Documented by: Sodium Chloride (Sodium Chloride 0.9% 10 Ml Syringe) 10 ml FLUSH ONETIME ONE Stop: 07/26/20 13:05 Last Admin: 07/26/20 13:16 Dose: 10 ml Documented by:
[2020-07-29] MEDS: Ketorolac 30 MG/ML SDV IVPUSH PRN (10:53)
== END 2020-07-29 11:28 | disposition home or self-care (01) | DRG 155 ==
LOC: JP.ED 11:45 → JP.MS 15:08
PROVIDERS: ADMIT Internal Medicine; ATTEND Internal Medicine
DX: R22.0 Localized swelling, mass and lump, head (principal); K11.20 Sialoadenitis, unspecified; C34.92 Malignant neoplasm of unspecified part of left bronchus or lung; R13.10 Dysphagia, unspecified; Z88.9 Allergy status to unspecified drugs, medicaments and biological substances; R59.0 Localized enlarged lymph nodes; I11.0 Hypertensive heart disease with heart failure; I50.9 Heart failure, unspecified; J45.909 Unspecified asthma, uncomplicated; E03.9 Hypothyroidism, unspecified; G62.9 Polyneuropathy, unspecified; J30.9 Allergic rhinitis, unspecified; Z79.82 Long term (current) use of aspirin; Z85.118 Personal history of other malignant neoplasm of bronchus and lung; Z79.890 Hormone replacement therapy; Z79.899 Other long term (current) drug therapy; Z88.1 Allergy status to other antibiotic agents; Z88.0 Allergy status to penicillin; Z88.2 Allergy status to sulfonamides; Z91.048 Other nonmedicinal substance allergy status; Z98.49 Cataract extraction status, unspecified eye; Z92.21 Personal history of antineoplastic chemotherapy
CPT/HCPCS: 36415; 70491 ×2; 83605; 86140; 87040 ×2; J1956; Q9967; 80048; 85027; 94640; 96374; 99283; 99285-25; A9270-GY; J1885; J3490; J7030

== ENCOUNTER 2020-09-11 07:30 | Inpatient (IN) | payer MEDICARE, OTHER ==
[~2020-09-11 07:30] MED LIST: Lactated Ringers 1,000 ML IV SCH; Nozin Nasal Sanitizer NASBOTH ONE; Povidone-Iodine 10% Soln 118.25 ML Bottle ONE
[2020-09-11] MEDS ORDERED: Propofol 200 MG/20 ML SDV ONE ×2 (07:39→09:02)
[2020-09-11] MEDS ORDERED: fentaNYL 100 MCG/2 ML SDV ONE (07:39)
[2020-09-11] MEDS ORDERED: Midazolam 1 MG/ML 2 ML SDV ONE (07:39)
[2020-09-11] MEDS ORDERED: Sodium Chloride 0.9% 10 ML ONE (08:28)
[2020-09-11] MEDS ORDERED: Phenylephrine 1% 10 MG/ML SDV ONE (08:28)
[2020-09-11] MEDS ORDERED: Lactated Ringers 1,000 ML ONE (09:16)
[2020-09-11] MEDS ORDERED: Morphine 2 MG/ML SYRINGE IVPUSH PRN (09:46)
[2020-09-11] MEDS ORDERED: Acetaminophen/HYDROcodone 325-5 MG Tab PO PRN (09:46)
[2020-09-11] MEDS ORDERED: Magnesium Hydroxide 400 MG/5 ML Susp 30 ML Cup PO PRN (09:46)
[2020-09-11] MEDS ORDERED: Acetaminophen 325 MG Tab PO PRN (09:46)
[2020-09-11] MEDS ORDERED: Morphine 2 MG/ML SYRINGE IVPUSH ONE (09:52)
[2020-09-11] MEDS ORDERED: Albuterol 8 GM Inhaler INH PRN (09:55)
[2020-09-11] MEDS ORDERED: Furosemide 20 MG Tab PO PRN (09:55)
[2020-09-11] MEDS ORDERED: Fluorometholone 0.1% Ophth Susp 5 ML Bottle EYEBOTH PRN (10:04)
[2020-09-11] MEDS ORDERED: hydrOXYzine HCL 100 MG/2 ML SDV IM ONE (10:21)
[2020-09-11] MEDS: Acetaminophen/oxyCODONE 325-5 MG Tab PO PRN ×3 (12:34→21:34)
[2020-09-11] MEDS: Ondansetron 4 MG/2 ML SDV IVPUSH PRN ×2 (12:34→16:48)
[2020-09-11] MEDS: Sodium Chloride 0.9% 1,000 ML IV SCH ×2 (12:51→23:00)
[2020-09-11] MEDS ORDERED: Sodium Chloride 0.9% 10 ML SDV IV PRN (13:11)
[2020-09-11] MEDS ORDERED: Sodium Chloride 0.9% 500 ML IV ONE (14:00)
[2020-09-11] MEDS: Ketorolac 30 MG/ML SDV IVPUSH PRN (15:11)
[2020-09-11] MEDS: Docusate Sodium 100 MG Cap PO SCH (20:28)
[2020-09-11] MEDS: Nozin Nasal Sanitizer NASBOTH SCH (20:34)
[2020-09-11] MEDS ORDERED: Docusate Sodium 100 MG Cap PO SCH (21:00)
[2020-09-11] MEDS ORDERED: Simvastatin 20 MG Tab PO SCH ×2 (21:00)
[2020-09-12] MEDS: Acetaminophen/oxyCODONE 325-5 MG Tab PO PRN ×4 (05:15→18:01)
[2020-09-12] MEDS: Trelegy Ellipta **PTOM INH SCH (07:22)
--- NOTE | 2020-09-12 08:22 | PCM.SURGPN ---
- General Info Date of Service: 09/12/20 Date of Surgery/Procedure: 09/11/20 POD#: 1 Post-Op Diagnosis: right knee osteoarthritis Functional Status: Reports: Pain Controlled, Tolerating Diet, Incentive Spirometry - Review of Systems General: Reports: No Symptoms HEENT: Reports: No Symptoms Pulmonary: Reports: No Symptoms Cardiovascular: Reports: Dyspnea on Exertion Gastrointestinal: Reports: No Symptoms Genitourinary: Reports: No Symptoms Musculoskeletal: Reports: Leg Pain (right ), Joint Pain (right knee ), Joint Swelling (right knee ) Neurological: Reports: No Symptoms Psychiatric: Reports: No Symptoms - Patient Data Vitals - Most Recent: Last Vital Signs Temp 97.7 F 09/12/20 07:00 Pulse 71 09/12/20 07:00 Resp 18 09/12/20 07:00 BP 96/50 L 09/12/20 07:00 Pulse Ox 95 09/12/20 07:00 Weight - Most Recent: 206 lb I&O - Last 24 Hours: Intake & Output 09/11/20 09/12/20 09/12/20 22:59 06:59 14:59 Intake Total 555 2221 Output Total 13" 275 Balance 42C 1946 Lab Results Last 24 Hrs: Laboratory Results - last 24 hr 09/12/20 Range/Units 05:03 WBC 5.6 (4.5-11.0) K/uL RBC 3.29 L (3.30-5.50) M/uL Hgb 9.8 L D (12.0-15.0) g/dL Hct 31.0 L (36.0-48.0) % MCV 94 (80-98) fL MCH 30 (27-31) pg MCHC 32 (32-36) % Plt Count 170 (150-400) K/uL Med Orders - Current: Current Medications Acetaminophen (Acetaminophen 325 Mg Tab) 650 mg PO Q4H PRN PRN Reason: Pain/Fever Hydrocodone Bitart/Acetaminophen (Acetaminophen/Hydrocodone 325-5 Mg Tab) 1 tab PO Q4H PRN PRN Reason: Pain (mild 1-3) Albuterol (Albuterol 8 Gm Inhaler) 0 gm INH Q4H PRN PRN Reason: Shortness of Breath Amlodipine Besylate (Amlodipine 5 Mg Tab) 5 mg PO DAILY [facility] Bandage/Support Products (Nozin Nasal Hair Tinter) 1 applic NASBOTH BID [facility] Stop: 09/17/20 21:01 Last Admin: 09/11/20 20:34 Dose: 1 applic Documented by: Cetirizine HCl (Cetirizine 10 Mg Tab) 10 mg PO DAILY [facility] Docusate Sodium (Docusate Sodium 100 Mg Cap) 100 mg PO BID [facility] Last Admin: 09/11/20 20:28 Dose: 100 mg Documented by: Enoxaparin Sodium (Enoxaparin 30 Mg/0.3 Ml Syringe) 30 mg SUBCUT DAILY [facility] Famotidine (Famotidine 20 Mg Tab) 40 mg PO DAILY [facility] Fluorometholone (Fluorometholone 0.1% Ophth Susp 5 Ml Bottle) 0 ml EYEBOTH BID PRN PRN Reason: ALLERGY Fluticasone Propionate (Fluticasone Propionate Nasal [place] 16 Gm Bottle) 0 gm NASBOTH DAILY [facility] Furosemide (Furosemide 20 Mg Tab) 20 mg PO DAILY PRN PRN Reason: Edema Sodium Chloride (Normal Saline) 1,000 mls @ 125 mls/hr IV ASDIRECTED [facility] Last Admin: 09/11/20 23:00 Dose: 125 mls/hr Documented by: Ketorolac Tromethamine (Ketorolac 30 Mg/Ml Sdv) 15 mg IVPUSH Q8H PRN PRN Reason: Pain Last Admin: 09/11/20 15:11 Dose: 15 mg Documented by: Levothyroxine Sodium (Levothyroxine 88 Mcg Tab) 88 mcg PO DAILY@0730 [facility] Losartan Potassium (Losartan 25 Mg Tab) 12.5 mg PO DAILY [facility] Magnesium Hydroxide (Magnesium Hydroxide 400 Mg/5 Ml Susp 30 Ml Cup) 30 ml PO BID PRN PRN Reason: Constipation Metoprolol Succinate (Metoprolol Succinate 25 Mg Tab.Er) 12.5 mg PO DAILY [facility] Montelukast Sodium (Montelukast 10 Mg Tab) 10 mg PO DAILY [facility] Morphine Sulfate (Morphine 2 Mg/Ml Syringe) 1 mg IVPUSH Q1H PRN PRN Reason: Breakthrough Pain Trelegy Ellipta (Ptom) 0 puff INH DAILY@0700 [facility] Last Admin: 09/12/20 07:22 Dose: 1 puff Documented by: Ondansetron HCl (Ondansetron 4 Mg/2 Ml Sdv) 4 mg IVPUSH Q4H PRN PRN Reason: Nausea/Vomiting Last Admin: 09/11/20 16:48 Dose: 4 mg Documented by: Oxycodone/Acetaminophen (Acetaminophen/Oxycodone 325-5 Mg Tab) 1 - 2 tab PO Q4H PRN PRN Reason: Pain (moderate 4-6) Last Admin: 09/12/20 05:15 Dose: 2 tab Documented by: Simvastatin (Simvastatin 20 Mg Tab) 40 mg PO BEDTIME [facility] Last Admin: 09/11/20 20:28 Dose: 40 mg Documented by: Discontinued Medications Bandage/Support Products (Nozin Nasal Hair Tinter) 1 applic NASBOTH BID ONE Stop: 09/11/20 06:31 Last Admin: 09/11/20 05:53 Dose: 1 applic Documented by: Cetirizine HCl (Cetirizine 10 Mg Tab) 10 mg PO DAILY [facility] Docusate Sodium (Docusate Sodium 100 Mg Cap) 100 mg PO BID [facility] Enoxaparin Sodium (Enoxaparin 30 Mg/0.3 Ml Syringe) 30 mg SUBCUT DAILY [facility] Fentanyl (Fentanyl 100 Mcg/2 Ml Sdv) Confirm Administered Dose 100 mcg .ROUTE .STK-MED ONE Stop: 09/11/20 07:40 Hydroxyzine HCl (Hydroxyzine Hcl 100 Mg/2 Ml Sdv) 75 mg IM ONETIME ONE Stop: 09/11/20 10:22 Last Admin: 09/11/20 10:23 Dose: 75 mg Documented by: Vancomycin HCl 1 gm/ Sodium (Chloride) 250 mls @ 150 mls/hr IV ONETIME ONE Stop: 09/11/20 09:09 Last Admin: 09/11/20 07:48 Dose: 150 mls/hr Documented by: Lactated Ringer's (Ringers, Lactated) 1,000 mls @ 75 mls/hr IV ASDIRECTED [facility] Last Admin: 09/11/20 06:48 Dose: 75 mls/hr Documented by: Sodium Chloride (Normal Saline) Confirm Administered Dose 10 mls @ as directed .ROUTE .STK-MED ONE Stop: 09/11/20 08:29 Lactated Ringer's (Ringers, Lactated) Confirm Administered Dose 1,000 mls @ as directed .ROUTE .STK-MED ONE Stop: 09/11/20 09:17 Vancomycin HCl 1 gm/ Sodium (Chloride) 250 mls @ 150 mls/hr IV Q12H [facility] Stop: 09/12/20 03:39 Vancomycin HCl 1 gm/ Sodium (Chloride) 250 mls @ 167 mls/hr IV Q12H [facility] Stop: 09/12/20 03:30 Last Admin: 09/12/20 02:24 Dose: 167 mls/hr Documented by: Sodium Chloride (Normal Saline) 500 mls @ 500 mls/hr IV ONETIME ONE Stop: 09/11/20 14:59 Last Admin: 09/11/20 13:34 Dose: 500 mls/hr Documented by: Levothyroxine Sodium (Levothyroxine 88 Mcg Tab) 88 mcg PO QAM [facility] Losartan Potassium (Losartan 25 Mg Tab) 12.5 mg PO DAILY [facility] Metoprolol Succinate (Metoprolol Succinate 25 Mg Tab.Er) 12.5 mg PO DAILY [facility] Midazolam HCl (Midazolam 1 Mg/Ml 2 Ml Sdv) Confirm Administered Dose 2 mg .ROUTE .STK-MED ONE Stop: 09/11/20 07:40 Montelukast Sodium (Montelukast 10 Mg Tab) 10 mg PO DAILY [facility] Morphine Sulfate (Morphine 2 Mg/Ml Syringe) 2 mg IVPUSH ONETIME ONE Stop: 09/11/20 09:53 Last Admin: 09/11/20 09:57 Dose: 2 mg Documented by: Non-Formulary Medication (Amlodipine Besylate [Amlodipine Besylate]) 5 mg PO DAILY [facility] Non-Formulary Medication (Famotidine [Famotidine]) 40 mg PO DAILY [facility] Non-Formulary Medication (Fluticasone/Umeclidin/Vilanter [Trelegy Ellipta 100-62.5-25]) 1 puff INH DAILY [facility] Phenylephrine HCl (Phenylephrine 1% 10 Mg/Ml Sdv) Confirm Administered Dose 10 mg .ROUTE .STK-MED ONE Stop: 09/11/20 08:29 Povidone Iodine (Povidone-Iodine 10% Soln 118.25 Ml Bottle) Confirm Administered Dose 1 ml .ROUTE .STK-MED ONE Stop: 09/11/20 06:42 Last Admin: 09/11/20 08:39 Dose: 40 ml Documented by: Propofol (Propofol 200 Mg/20 Ml Sdv) Confirm Administered Dose 200 mg .ROUTE .STK-MED ONE Stop: 09/11/20 07:40 Propofol (Propofol 200 Mg/20 Ml Sdv) Confirm Administered Dose 200 mg .ROUTE .STK-MED ONE Stop: 09/11/20 09:03 Simvastatin (Simvastatin 20 Mg Tab) 40 mg PO BEDTIME [facility] - Exam Wound/Incisions: Dressing Dry and Intact, No Drainage Quality Assessment: Supplemental Oxygen, Urine Catheter, DVT Prophylaxis General: Alert, Oriented, Cooperative, No Acute Distress Extremities: Joint Swelling (right knee ), Leg Pain (right ), Limited Range of Motion Skin: Dry, Intact Neurological: No New Focal Deficit Psy/Mental Status: Alert, Normal Affect, Normal Mood Sepsis Event Note - Evaluation Sepsis Screening Result: No Definite Risk - Focused Exam Vital Signs: Vital Signs Temp Pulse Resp BP Pulse Ox 09/12/20 07:00 97.7 F 71 18 96/50 L 95 09/12/20 02:26 96.5 F L 73 16 89/48 L 96 09/11/20 22:41 96.2 F L 75 16 100/52 L 92 L - Problem List & Annotations (1) Status post total right knee replacement SNOMED Code(s): 2585283798093, 8415061868407 Code(s): Z96.651 - PRESENCE OF RIGHT ARTIFICIAL KNEE JOINT Status: Acute Current Visit: Yes (2) Postoperative anemia SNOMED Code(s): 059787328, 387121414 Code(s): D64.9 - ANEMIA, UNSPECIFIED Status: Acute Current Visit: Yes - Problem List Review Problem List Initiated/Reviewed/Updated: Yes - My Orders Last 24 Hours: Active Orders 24 hr Category Date Time Status Patient Status [ADT] Routine ADT 09/11/20 09:46 Active Ambulate [RC] QID Care 09/11/20 09:46 Active Dietary Supplements [RC] BIDMEALS Care 09/11/20 07:30 Active Head of Bed Elevation [RC] ASDIRECTED Care 09/11/20 09:46 Active Intake and Output [RC] QSHIFT Care 09/11/20 09:46 Active May Shower [RC] ASDIRECTED Care 09/11/20 09:46 Active Neurovascular Check [RC] Q4H Care 09/11/20 09:46 Active Notify Provider Vital Signs [RC] ASDIRECTED Care 09/11/20 09:46 Active Oxygen Therapy [RC] PRN Care 09/11/20 09:46 Active Pneumonia Education [RC] UPON Care 09/11/20 09:46 Active RT Incentive Spirometry [RC] Q1HWA Care 09/11/20 09:46 Active RT Post Treatment Assessment [RC] Click to Edit Care 09/11/20 09:57 Active Up to Chair [RC] QID Care 09/11/20 09:46 Active VTE/DVT Education [RC] Click to Edit Care 09/11/20 09:47 Active Vital Signs [RC] Q4H Care 09/11/20 09:46 Active Wound Care [RC] Q12H Care 09/11/20 09:46 Active Consult to Case Management/Steel [employer]acer [CONS] Cons 09/11/20 09:46 Active Routine OT Evaluation and Treatment [CONS] Routine Cons 09/11/20 09:46 Active PT Evaluation and Treatment [CONS] Routine Cons 09/11/20 09:46 Active Regular Diet [DIET] Diet 09/11/20 Lunch Active Knee 1V or 2V Rt [CR] Routine Exams 09/11/20 09:46 Taken Acetaminophen [TylenoL] Med 09/11/20 09:46 Active 650 mg PO Q4H PRN Acetaminophen/HYDROcodone [[place] 325-5 MG] Med 09/11/20 09:46 Active 1 tab PO Q4H PRN Acetaminophen/oxyCODONE [Percocet 325-5 MG] Med 09/11/20 09:46 Active 1 - 2 tab PO Q4H PRN Albuterol [Ventolin HFA] Med 09/11/20 09:55 Active 0 gm INH Q4H PRN Cetirizine [ZyrTEC] Med 09/12/20 09:00 Active 10 mg PO DAILY Docusate Sodium [Colace] Med 09/11/20 21:00 Active 100 mg PO BID Enoxaparin [Lovenox] Med 09/12/20 09:00 Active 30 mg SUBCUT DAILY Famotidine [Pepcid] Med 09/12/20 09:00 Active 40 mg PO DAILY Fluorometholone [Flarex 0.1% Ophth Susp] Med 09/11/20 10:04 Active 0 ml EYEBOTH BID PRN Fluticasone Propionate [Flonase] Med 09/12/20 09:00 Active 0 gm NASBOTH DAILY Fluticasone/Umeclidin/Vilanter [Trelegy Ellipta 100-62. Med 09/12/20 07:00 Active 5-25] 0 puff INH DAILY@0700 Furosemide [Lasix] Med 09/11/20 09:55 Active 20 mg PO DAILY PRN Ketorolac [Toradol] Med 09/11/20 09:46 Active 15 mg IVPUSH Q8H PRN Levothyroxine [Synthroid] Med 09/12/20 07:30 Active 88 mcg PO DAILY@0730 Losartan [Cozaar] Med 09/12/20 09:00 Active 12.5 mg PO DAILY Magnesium Hydroxide [Milk of Magnesia] Med 09/11/20 09:46 Active 30 ml PO BID PRN Metoprolol Succinate [Toprol XL] Med 09/12/20 09:00 Active 12.5 mg PO DAILY Montelukast [Singulair] Med 09/12/20 09:00 Active 10 mg PO DAILY Morphine Med 09/11/20 09:46 Active 1 mg IVPUSH Q1H PRN Nozin [ Nasal Hair Tinter] Med 09/11/20 21:00 Active 1 applic NASBOTH BID Ondansetron [Zofran] Med 09/11/20 09:46 Active 4 mg IVPUSH Q4H PRN Simvastatin [Zocor] Med 09/11/20 21:00 Active 40 mg PO BEDTIME Sodium Chloride 0.9% [Normal Saline] 1,000 ml Med 09/11/20 10:00 Active IV ASDIRECTED amLODIPine [Norvasc] Med 09/12/20 09:00 Active 5 mg PO DAILY Antiembolic Hose [OM.PC] Routine Oth 09/11/20 09:46 Ordered DVT/VTE Prophylaxis Reflex [OM.PC] Routine Oth 09/11/20 09:46 Ordered Ice Therapy [OM.PC] Per Unit Routine Oth 09/11/20 09:46 Ordered Medication Continuation Instructions [OM.PC] Per Unit Oth 09/11/20 09:46 Ordered Routine Oral Care [OM.PC] Routine Oth 09/11/20 09:46 Ordered Sequential Compression Device [OM.PC] Routine Oth 09/11/20 09:46 Ordered Weight bearing status [OM.PC] Routine Oth 09/11/20 14:25 Ordered Resuscitation Status Routine Resus Stat 09/11/20 09:46 Ordered Medication Orders Acetaminophen (Acetaminophen 325 Mg Tab) 650 mg PO Q4H PRN PRN Reason: Pain/Fever Hydrocodone Bitart/Acetaminophen (Acetaminophen/Hydrocodone 325-5 Mg Tab) 1 tab PO Q4H PRN PRN Reason: Pain (mild 1-3) Albuterol (Albuterol 8 Gm Inhaler) 0 gm INH Q4H PRN PRN Reason: Shortness of Breath Amlodipine Besylate (Amlodipine 5 Mg Tab) 5 mg PO DAILY [facility] Bandage/Support Products (Nozin Nasal Hair Tinter) 1 applic NASBOTH BID [facility] Stop: 09/17/20 21:01 Last Admin: 09/11/20 20:34 Dose: 1 applic Documented by: KAYDEN Cetirizine HCl (Cetirizine 10 Mg Tab) 10 mg PO DAILY [facility] Docusate Sodium (Docusate Sodium 100 Mg Cap) 100 mg PO BID [facility] Last Admin: 09/11/20 20:28 Dose: 100 mg Documented by: KAYDEN Enoxaparin Sodium (Enoxaparin 30 Mg/0.3 Ml Syringe) 30 mg SUBCUT DAILY [facility] Famotidine (Famotidine 20 Mg Tab) 40 mg PO DAILY [facility] Fluorometholone (Fluorometholone 0.1% Ophth Susp 5 Ml Bottle) 0 ml EYEBOTH BID PRN PRN Reason: ALLERGY Fluticasone Propionate (Fluticasone Propionate Nasal [place] 16 Gm Bottle) 0 gm NASBOTH DAILY [facility] Furosemide (Furosemide 20 Mg Tab) 20 mg PO DAILY PRN PRN Reason: Edema Sodium Chloride (Normal Saline) 1,000 mls @ 125 mls/hr IV ASDIRECTED [facility] Last Admin: 09/11/20 23:00 Dose: 125 mls/hr Documented by: Infusion: 09/11/20 20:51 Dose: 125 mls/hr Documented by: Admin: 09/11/20 12:51 Dose: 125 mls/hr Documented by: SAMMY Ketorolac Tromethamine (Ketorolac 30 Mg/Ml Sdv) 15 mg IVPUSH Q8H PRN PRN Reason: Pain Last Admin: 09/11/20 15:11 Dose: 15 mg Documented by: MONIE Levothyroxine Sodium (Levothyroxine 88 Mcg Tab) 88 mcg PO DAILY@0730 [facility] Losartan Potassium (Losartan 25 Mg Tab) 12.5 mg PO DAILY [facility] Magnesium Hydroxide (Magnesium Hydroxide 400 Mg/5 Ml Susp 30 Ml Cup) 30 ml PO BID PRN PRN Reason: Constipation Metoprolol Succinate (Metoprolol Succinate 25 Mg Tab.Er) 12.5 mg PO DAILY [facility] Montelukast Sodium (Montelukast 10 Mg Tab) 10 mg PO DAILY [facility] Morphine Sulfate (Morphine 2 Mg/Ml Syringe) 1 mg IVPUSH Q1H PRN PRN Reason: Breakthrough Pain Trelegy Ellipta (Ptom) 0 puff INH DAILY@0700 [facility] Last Admin: 09/12/20 07:22 Dose: 1 puff Documented by: AKASH Ondansetron HCl (Ondansetron 4 Mg/2 Ml Sdv) 4 mg IVPUSH Q4H PRN PRN Reason: Nausea/Vomiting Last Admin: 09/11/20 16:48 Dose: 4 mg Documented by: Admin: 09/11/20 12:34 Dose: 4 mg Documented by: SAMMY Oxycodone/Acetaminophen (Acetaminophen/Oxycodone 325-5 Mg Tab) 1 - 2 tab PO Q4H PRN PRN Reason: Pain (moderate 4-6) Last Admin: 09/12/20 05:15 Dose: 2 tab Documented by: Admin: 09/11/20 21:34 Dose: 2 tab Documented by: Admin: 09/11/20 16:49 Dose: 2 tab Documented by: Admin: 09/11/20 12:34 Dose: 2 tab Documented by: SAMMY Simvastatin (Simvastatin 20 Mg Tab) 40 mg PO BEDTIME [facility] Last Admin: 09/11/20 20:28 Dose: 40 mg Documented by: KAYDEN - Assessment Assessment (Free Text/Narrative):: Patient is a pleasant 80 y/o female, status post right total knee arthroplasty, POD#1. Patient tolerated surgery well with no major complications. Patient has had intermittent hypotension the evening of surgery and into the morning of POD#1. 500 mL saline bolus was administered yesterday. Plan to hold morning antihypertensive medications. Has required 1L O2 to maintain oxygen saturations >90%. Endorsed dyspnea with transfer to chair, no shortness of breath at rest. No fevers. All other vitals within normal limits. Pain has been a limiting factor in patients ability to ambulate. Attempted transfer to chair yesterday evening but was unable to complete on first attempt due to pain and feeling lightheaded. On second attempt, did transfer to chair with x2 assist. Patient again transferred to chair this morning for breakfast with x2 assist. Denied dizziness with transfer this morning. Reports 7/10 pain in right leg immediately after transfer, but overall pain control better than yesterday. Has not ambulated further than chair transfer. Patient had mild nausea yesterday afternoon, prn Zofran was utilized. Otherwise has been tolerating regular diet well. Gaitan remains in place, urine output has been acceptable. POD#1 HgB at 9.8. Patient denied dizziness with transfer this morning. Denied fatigue, weakness. Due to hypotension and limited ambulation abilities at this time, requires prolonged hospitalization for additional physical therapy services and to monitor/improve BP. Also needs to obtain better pain control with PO medications. Status will be changed from same day surgery to inpatient. Exam: R knee CONCHA wrap dressing dry and intact. Mild pedal edema. Tibialis posterior appreciated, 2+. Sensation intact. Demonstrates active motion of toes. Knee ROM not assessed. Plan: * Continue with PT and OT services daily while in the hospital * Pending progress with morning PT, may pull gaitan catheter if improved ambulation ability. * Hypotension: Hold morning antihypertensive medications and keep maintenance fluids at 125ml/hr. Continue to monitor vitals and watch for symptoms of lightheaded/dizziness with transfers * Wean to room air as tolerated. Encouraged hourly IS use * Postoperative anemia: Asymptomatic and stable at this time. Can recheck CBC if patient becomes symptomatic * Pain: continue with current pain regimen * DVT/VTE prophylaxis: Lovenox 30 mg subcutaneous for chemical prophylaxis while inpatient, bilateral SCDs on LEs for mechanical prophylaxis * Anticipate discharge to SNF when pain is controlled with PO medications, blood pressures improved, and ambulation abilities advanced
[2020-09-12] MEDS: Levothyroxine 88 MCG Tab PO SCH (08:25)
[2020-09-12] MEDS: Montelukast 10 MG Tab PO SCH (08:25)
[2020-09-12] MEDS: Docusate Sodium 100 MG Cap PO SCH ×2 (08:29→20:22)
[2020-09-12] MEDS: Enoxaparin 30 MG/0.3 ML Syringe SUBCUT SCH (08:30)
[2020-09-12] MEDS: Famotidine 20 MG Tab PO SCH (08:30)
[2020-09-12] MEDS: Nozin Nasal Sanitizer NASBOTH SCH ×2 (08:31→20:21)
[2020-09-12] MEDS: Cetirizine 10 MG Tab PO SCH (08:33)
[2020-09-12] MEDS: Fluticasone Propionate Nasal Spray 16 GM Bottle NASBOTH SCH (08:34)
[2020-09-12] MEDS ORDERED: Non-Formulary Medication 1 Each (Famotidine [Famotidine] 40 MG Tablet) PO SCH (09:00)
[2020-09-12] MEDS ORDERED: Cetirizine 10 MG Tab PO SCH (09:00)
[2020-09-12] MEDS ORDERED: Montelukast 10 MG Tab PO SCH (09:00)
[2020-09-12] MEDS ORDERED: Non-Formulary Medication 1 Each (Fluticasone/Umeclidin/Vilanter [Trelegy Ellipta 100-62.5- INH SCH (09:00)
[2020-09-12] MEDS ORDERED: Non-Formulary Medication 1 Each (Amlodipine Besylate [Amlodipine Besylate] 10 MG Tablet) PO SCH (09:00)
[2020-09-12] MEDS ORDERED: Levothyroxine 88 MCG Tab PO SCH (09:00)
[2020-09-12] MEDS ORDERED: Metoprolol Succinate 25 MG Tab.ER PO SCH (09:00)
[2020-09-12] MEDS ORDERED: Losartan 25 MG Tab PO SCH (09:00)
[2020-09-12] MEDS ORDERED: Enoxaparin 30 MG/0.3 ML Syringe SUBCUT SCH (09:00)
[2020-09-12] MEDS ORDERED: amLODIPine 5 MG Tab PO SCH (09:00)
--- NOTE | 2020-09-12 09:04 | CR ---
Knee 1V or 2V Rt CLINICAL HISTORY: Total knee arthroplasty FINDINGS: Patient is status post total knee arthroplasty. There is intra-articular and subcutaneous air. Components appear well seated. Impression: Status post recent total knee arthroplasty
[2020-09-12] MEDS: atorvaSTATin 20 MG Tab PO SCH (20:22)
[2020-09-13] MEDS: Ketorolac 30 MG/ML SDV IVPUSH PRN (06:06)
[2020-09-13] MEDS: Trelegy Ellipta **PTOM INH SCH (07:12)
[2020-09-13] MEDS: Docusate Sodium 100 MG Cap PO SCH ×2 (08:32→20:21)
[2020-09-13] MEDS: Levothyroxine 88 MCG Tab PO SCH (08:32)
[2020-09-13] MEDS: Nozin Nasal Sanitizer NASBOTH SCH ×2 (08:32→20:20)
[2020-09-13] MEDS: Fluticasone Propionate Nasal Spray 16 GM Bottle NASBOTH SCH (08:33)
[2020-09-13] MEDS: Enoxaparin 30 MG/0.3 ML Syringe SUBCUT SCH (08:34)
[2020-09-13] MEDS: Famotidine 20 MG Tab PO SCH (08:34)
[2020-09-13] MEDS: Montelukast 10 MG Tab PO SCH (08:35)
[2020-09-13] MEDS: Cetirizine 10 MG Tab PO SCH (08:35)
[2020-09-13] MEDS: Losartan 25 MG Tab PO SCH ×2 (08:39→09:25)
[2020-09-13] MEDS: Metoprolol Succinate 25 MG Tab.ER PO SCH ×2 (08:40→09:26)
--- NOTE | 2020-09-13 09:26 | PCM.SURGPN ---
- General Info Date of Service: 09/13/20 Date of Surgery/Procedure: 09/11/20 POD#: 2 Post-Op Diagnosis: right knee osteoarthritis Functional Status: Reports: Tolerating Diet, Urinating, Incentive Spirometry - Review of Systems General: Reports: No Symptoms HEENT: Reports: No Symptoms Pulmonary: Reports: No Symptoms Cardiovascular: Reports: No Symptoms Gastrointestinal: Reports: No Symptoms Genitourinary: Reports: No Symptoms Musculoskeletal: Reports: Leg Pain (right), Joint Pain (right knee ), Joint Swelling (right knee ) Skin: Reports: No Symptoms Neurological: Reports: No Symptoms Psychiatric: Reports: No Symptoms - Patient Data Vitals - Most Recent: Last Vital Signs Temp 98.8 F 09/13/20 07:00 Pulse 90 09/13/20 08:40 Resp 18 09/13/20 07:00 BP 110/59 L 09/13/20 08:40 Pulse Ox 93 L 09/13/20 07:00 Weight - Most Recent: 206 lb I&O - Last 24 Hours: Intake & Output 09/12/20 09/13/20 09/13/20 22:59 06:59 14:59 Intake Total 1330 550 Output Total 75 63% Balance 58@ -8% Med Orders - Current: Current Medications Acetaminophen (Acetaminophen 325 Mg Tab) 650 mg PO Q4H PRN PRN Reason: Pain/Fever Hydrocodone Bitart/Acetaminophen (Acetaminophen/Hydrocodone 325-5 Mg Tab) 1 tab PO Q4H PRN PRN Reason: Pain (mild 1-3) Albuterol (Albuterol 8 Gm Inhaler) 0 gm INH Q4H PRN PRN Reason: Shortness of Breath Amlodipine Besylate (Amlodipine 5 Mg Tab) 5 mg PO DAILY [facility] Last Admin: 09/13/20 08:40 Dose: Not Given Documented by: Atorvastatin Calcium (Atorvastatin 20 Mg Tab) 20 mg PO BEDTIME [facility] Last Admin: 09/12/20 20:22 Dose: 20 mg Documented by: Bandage/Support Products (Nozin Nasal Turning And Beading Machine Operator) 1 applic NASBOTH BID [facility] Stop: 09/17/20 21:01 Last Admin: 09/13/20 08:32 Dose: 1 applic Documented by: Cetirizine HCl (Cetirizine 10 Mg Tab) 10 mg PO DAILY [facility] Last Admin: 09/13/20 08:35 Dose: 10 mg Documented by: Docusate Sodium (Docusate Sodium 100 Mg Cap) 100 mg PO BID [facility] Last Admin: 09/13/20 08:32 Dose: 100 mg Documented by: Enoxaparin Sodium (Enoxaparin 30 Mg/0.3 Ml Syringe) 30 mg SUBCUT DAILY [facility] Last Admin: 09/13/20 08:34 Dose: 30 mg Documented by: Famotidine (Famotidine 20 Mg Tab) 40 mg PO DAILY [facility] Last Admin: 09/13/20 08:34 Dose: 40 mg Documented by: Fluorometholone (Fluorometholone 0.1% Ophth Susp 5 Ml Bottle) 0 ml EYEBOTH BID PRN PRN Reason: ALLERGY Fluticasone Propionate (Fluticasone Propionate Nasal Deford 16 Gm Bottle) 0 gm NASBOTH DAILY [facility] Last Admin: 09/13/20 08:33 Dose: 2 sprays Documented by: Furosemide (Furosemide 20 Mg Tab) 20 mg PO DAILY PRN PRN Reason: Edema Ketorolac Tromethamine (Ketorolac 30 Mg/Ml Sdv) 15 mg IVPUSH Q8H PRN PRN Reason: Pain Last Admin: 09/13/20 06:06 Dose: 15 mg Documented by: Levothyroxine Sodium (Levothyroxine 88 Mcg Tab) 88 mcg PO DAILY@0730 [facility] Last Admin: 09/13/20 08:32 Dose: 88 mcg Documented by: Losartan Potassium (Losartan 25 Mg Tab) 12.5 mg PO DAILY [facility] Last Admin: 09/13/20 08:39 Dose: Not Given Documented by: Magnesium Hydroxide (Magnesium Hydroxide 400 Mg/5 Ml Susp 30 Ml Cup) 30 ml PO BID PRN PRN Reason: Constipation Metoprolol Succinate (Metoprolol Succinate 25 Mg Tab.Er) 12.5 mg PO DAILY [facility] Last Admin: 09/13/20 08:40 Dose: Not Given Documented by: Montelukast Sodium (Montelukast 10 Mg Tab) 10 mg PO DAILY [facility] Last Admin: 09/13/20 08:35 Dose: 10 mg Documented by: Morphine Sulfate (Morphine 2 Mg/Ml Syringe) 1 mg IVPUSH Q1H PRN PRN Reason: Breakthrough Pain Trelegy Ellipta (Ptom) 0 puff INH DAILY@0700 [facility] Last Admin: 09/13/20 07:12 Dose: 1 puff Documented by: Ondansetron HCl (Ondansetron 4 Mg/2 Ml Sdv) 4 mg IVPUSH Q4H PRN PRN Reason: Nausea/Vomiting Last Admin: 09/11/20 16:48 Dose: 4 mg Documented by: Oxycodone/Acetaminophen (Acetaminophen/Oxycodone 325-5 Mg Tab) 1 - 2 tab PO Q4H PRN PRN Reason: Pain (moderate 4-6) Last Admin: 09/12/20 18:01 Dose: 2 tab Documented by: Discontinued Medications Bandage/Support Products (Nozin Nasal Turning And Beading Machine Operator) 1 applic NASBOTH BID [facility] Stop: 09/11/20 06:31 Last Admin: 09/11/20 05:53 Dose: 1 applic Documented by: Cetirizine HCl (Cetirizine 10 Mg Tab) 10 mg PO DAILY [facility] Docusate Sodium (Docusate Sodium 100 Mg Cap) 100 mg PO BID [facility] Enoxaparin Sodium (Enoxaparin 30 Mg/0.3 Ml Syringe) 30 mg SUBCUT DAILY [facility] Fentanyl (Fentanyl 100 Mcg/2 Ml Sdv) Confirm Administered Dose 100 mcg .ROUTE .ST-MED ONE Stop: 09/11/20 07:40 Hydroxyzine HCl (Hydroxyzine Hcl 100 Mg/2 Ml Sdv) 75 mg IM ONETIME ONE Stop: 09/11/20 10:22 Last Admin: 09/11/20 10:23 Dose: 75 mg Documented by: Vancomycin HCl 1 gm/ Sodium (Chloride) 250 mls @ 150 mls/hr IV ONETIME ONE Stop: 09/11/20 09:09 Last Admin: 09/11/20 07:48 Dose: 150 mls/hr Documented by: Lactated Ringer's (Ringers, Lactated) 1,000 mls @ 75 mls/hr IV ASDIRECTED [facility] Last Admin: 09/11/20 06:48 Dose: 75 mls/hr Documented by: Sodium Chloride (Normal Saline) Confirm Administered Dose 10 mls @ as directed .ROUTE .STK-MED ONE Stop: 09/11/20 08:29 Lactated Ringer's (Ringers, Lactated) Confirm Administered Dose 1,000 mls @ as directed .ROUTE .ST-MED ONE Stop: 09/11/20 09:17 Sodium Chloride (Normal Saline) 1,000 mls @ 125 mls/hr IV ASDIRECTED [facility] Last Admin: 09/11/20 23:00 Dose: 125 mls/hr Documented by: Vancomycin HCl 1 gm/ Sodium (Chloride) 250 mls @ 150 mls/hr IV Q12H [facility] Stop: 09/12/20 03:39 Vancomycin HCl 1 gm/ Sodium (Chloride) 250 mls @ 167 mls/hr IV Q12H [facility] Stop: 09/12/20 03:30 Last Admin: 09/12/20 02:24 Dose: 167 mls/hr Documented by: Sodium Chloride (Normal Saline) 500 mls @ 500 mls/hr IV ONETIME ONE Stop: 09/11/20 14:59 Last Admin: 09/11/20 13:34 Dose: 500 mls/hr Documented by: Levothyroxine Sodium (Levothyroxine 88 Mcg Tab) 88 mcg PO QAM [facility] Losartan Potassium (Losartan 25 Mg Tab) 12.5 mg PO DAILY [facility] Metoprolol Succinate (Metoprolol Succinate 25 Mg Tab.Er) 12.5 mg PO DAILY [facility] Midazolam HCl (Midazolam 1 Mg/Ml 2 Ml Sdv) Confirm Administered Dose 2 mg .ROUTE .STK-MED ONE Stop: 09/11/20 07:40 Montelukast Sodium (Montelukast 10 Mg Tab) 10 mg PO DAILY [facility] Morphine Sulfate (Morphine 2 Mg/Ml Syringe) 2 mg IVPUSH ONETIME ONE Stop: 09/11/20 09:53 Last Admin: 09/11/20 09:57 Dose: 2 mg Documented by: Non-Formulary Medication (Amlodipine Besylate [Amlodipine Besylate]) 5 mg PO DAILY [facility] Non-Formulary Medication (Famotidine [Famotidine]) 40 mg PO DAILY [facility] Non-Formulary Medication (Fluticasone/Umeclidin/Vilanter [Trelegy Ellipta 100-62.5-25]) 1 puff INH DAILY [facility] Phenylephrine HCl (Phenylephrine 1% 10 Mg/Ml Sdv) Confirm Administered Dose 10 mg .ROUTE .STK-MED ONE Stop: 09/11/20 08:29 Povidone Iodine (Povidone-Iodine 10% Soln 118.25 Ml Bottle) Confirm Administered Dose 1 ml .ROUTE .STK-MED ONE Stop: 09/11/20 06:42 Last Admin: 09/11/20 08:39 Dose: 40 ml Documented by: Propofol (Propofol 200 Mg/20 Ml Sdv) Confirm Administered Dose 200 mg .ROUTE .STK-MED ONE Stop: 09/11/20 07:40 Propofol (Propofol 200 Mg/20 Ml Sdv) Confirm Administered Dose 200 mg .ROUTE .STK-MED ONE Stop: 09/11/20 09:03 Simvastatin (Simvastatin 20 Mg Tab) 40 mg PO BEDTIME [facility] Simvastatin (Simvastatin 20 Mg Tab) 40 mg PO BEDTIME [facility] Last Admin: 09/11/20 20:28 Dose: 40 mg Documented by: - Exam Wound/Incisions: Healing Well, Dressing Dry and Intact, No Drainage Quality Assessment: Supplemental Oxygen, DVT Prophylaxis General: Alert, Oriented, Cooperative, No Acute Distress Extremities: Pedal Edema (right ), Joint Swelling (right knee ), Limited Range of Motion, Increased Warmth Skin: Dry, Intact Neurological: No New Focal Deficit Psy/Mental Status: Alert, Normal Affect, Normal Mood Sepsis Event Note - Evaluation Sepsis Screening Result: No Definite Risk - Focused Exam Vital Signs: Vital Signs Temp Temp Pulse Pulse Resp BP BP 09/13/20 08:40 90 110/59 L 09/13/20 08:39 110/59 L 09/13/20 07:00 98.8 F 90 18 110/59 L 09/13/20 02:54 98.1 F 90 14 118/66 09/12/20 22:44 96.8 F L 92 16 126/65 Pulse Ox 09/13/20 08:40 09/13/20 08:39 09/13/20 07:00 93 L 09/13/20 02:54 93 L 09/12/20 22:44 91 L - Problem List & Annotations (1) Status post total right knee replacement SNOMED Code(s): 5294947941991, 6024375679528 Code(s): Z96.651 - PRESENCE OF RIGHT ARTIFICIAL KNEE JOINT Status: Acute Current Visit: Yes (2) Postoperative anemia SNOMED Code(s): 872655497, 143758929 Code(s): D64.9 - ANEMIA, UNSPECIFIED Status: Acute Current Visit: Yes - Problem List Review Problem List Initiated/Reviewed/Updated: Yes - My Orders Last 24 Hours: Active Orders 24 hr Category Date Time Status Cetirizine [ZyrTEC] Med 09/12/20 09:00 Active 10 mg PO DAILY Enoxaparin [Lovenox] Med 09/12/20 09:00 Active 30 mg SUBCUT DAILY Famotidine [Pepcid] Med 09/12/20 09:00 Active 40 mg PO DAILY Fluticasone Propionate [Flonase] Med 09/12/20 09:00 Active 0 gm NASBOTH DAILY Losartan [Cozaar] Med 09/12/20 09:00 Hold 12.5 mg PO DAILY Metoprolol Succinate [Toprol XL] Med 09/12/20 09:00 Hold 12.5 mg PO DAILY Montelukast [Singulair] Med 09/12/20 09:00 Active 10 mg PO DAILY amLODIPine [Norvasc] Med 09/12/20 09:00 Hold 5 mg PO DAILY atorvaSTATin [Lipitor] Med 09/12/20 21:00 Active 20 mg PO BEDTIME Convert IV to Saline Lock [OM.PC] Routine Oth 09/12/20 17:42 Ordered Medication Orders Acetaminophen (Acetaminophen 325 Mg Tab) 650 mg PO Q4H PRN PRN Reason: Pain/Fever Hydrocodone Bitart/Acetaminophen (Acetaminophen/Hydrocodone 325-5 Mg Tab) 1 tab PO Q4H PRN PRN Reason: Pain (mild 1-3) Albuterol (Albuterol 8 Gm Inhaler) 0 gm INH Q4H PRN PRN Reason: Shortness of Breath Amlodipine Besylate (Amlodipine 5 Mg Tab) 5 mg PO DAILY [facility] Last Admin: 09/13/20 08:40 Dose: Not Given Documented by: JANIE Atorvastatin Calcium (Atorvastatin 20 Mg Tab) 20 mg PO BEDTIME [facility] Last Admin: 09/12/20 20:22 Dose: 20 mg Documented by: HAILEY Bandage/Support Products (Nozin Nasal Turning And Beading Machine Operator) 1 applic NASBOTH BID [facility] Stop: 09/17/20 21:01 Last Admin: 09/13/20 08:32 Dose: 1 applic Documented by: Admin: 09/12/20 20:21 Dose: 1 applic Documented by: Admin: 09/12/20 08:31 Dose: 1 applic Documented by: Admin: 09/11/20 20:34 Dose: 1 applic Documented by: KAYDEN Cetirizine HCl (Cetirizine 10 Mg Tab) 10 mg PO DAILY [facility] Last Admin: 09/13/20 08:35 Dose: 10 mg Documented by: Admin: 09/12/20 08:33 Dose: 10 mg Documented by: LIMA Docusate Sodium (Docusate Sodium 100 Mg Cap) 100 mg PO BID [facility] Last Admin: 09/13/20 08:32 Dose: 100 mg Documented by: Admin: 09/12/20 20:22 Dose: 100 mg Documented by: Admin: 09/12/20 08:29 Dose: 100 mg Documented by: Admin: 09/11/20 20:28 Dose: 100 mg Documented by: KAYDEN Enoxaparin Sodium (Enoxaparin 30 Mg/0.3 Ml Syringe) 30 mg SUBCUT DAILY [facility] Admin: 09/13/20 08:34 Dose: 30 mg Documented by: Admin: 09/12/20 08:30 Dose: 30 mg Documented by: LIMA Famotidine (Famotidine 20 Mg Tab) 40 mg PO DAILY [facility] Last Admin: 09/13/20 08:34 Dose: 40 mg Documented by: Admin: 09/12/20 08:30 Dose: 40 mg Documented by: LIMA Fluorometholone (Fluorometholone 0.1% Ophth Susp 5 Ml Bottle) 0 ml EYEBOTH BID PRN PRN Reason: ALLERGY Fluticasone Propionate (Fluticasone Propionate Nasal [place]ord 16 Gm Bottle) 0 gm NASBOTH DAILY [facility] Last Admin: 09/13/20 08:33 Dose: 2 sprays Documented by: Admin: 09/12/20 08:34 Dose: 2 sprays Documented by: LIMA Furosemide (Furosemide 20 Mg Tab) 20 mg PO DAILY PRN PRN Reason: Edema Ketorolac Tromethamine (Ketorolac 30 Mg/Ml Sdv) 15 mg IVPUSH Q8H PRN PRN Reason: Pain Last Admin: 09/13/20 06:06 Dose: 15 mg Documented by: Admin: 09/11/20 15:11 Dose: 15 mg Documented by: MONIE Levothyroxine Sodium (Levothyroxine 88 Mcg Tab) 88 mcg PO DAILY@0730 [facility] Last Admin: 09/13/20 08:32 Dose: 88 mcg Documented by: Admin: 09/12/20 08:25 Dose: 88 mcg Documented by: LIMA Losartan Potassium (Losartan 25 Mg Tab) 12.5 mg PO DAILY [facility] Last Admin: 09/13/20 08:39 Dose: Not Given Documented by: JANIE Magnesium Hydroxide (Magnesium Hydroxide 400 Mg/5 Ml Susp 30 Ml Cup) 30 ml PO BID PRN PRN Reason: Constipation Metoprolol Succinate (Metoprolol Succinate 25 Mg Tab.Er) 12.5 mg PO DAILY [facility] Last Admin: 09/13/20 08:40 Dose: Not Given Documented by: JANIE Montelukast Sodium (Montelukast 10 Mg Tab) 10 mg PO DAILY [facility] Last Admin: 09/13/20 08:35 Dose: 10 mg Documented by: Admin: 09/12/20 08:25 Dose: 10 mg Documented by: LIMA Morphine Sulfate (Morphine 2 Mg/Ml Syringe) 1 mg IVPUSH Q1H PRN PRN Reason: Breakthrough Pain Trelegy Ellipta (Ptom) 0 puff INH DAILY@0700 [facility] Last Admin: 09/13/20 07:12 Dose: 1 puff Documented by: Admin: 09/12/20 07:22 Dose: 1 puff Documented by: AKASH Ondansetron HCl (Ondansetron 4 Mg/2 Ml Sdv) 4 mg IVPUSH Q4H PRN PRN Reason: Nausea/Vomiting Last Admin: 09/11/20 16:48 Dose: 4 mg Documented by: Admin: 09/11/20 12:34 Dose: 4 mg Documented by: SAMMY Oxycodone/Acetaminophen (Acetaminophen/Oxycodone 325-5 Mg Tab) 1 - 2 tab PO Q4H PRN PRN Reason: Pain (moderate 4-6) Last Admin: 09/12/20 18:01 Dose: 2 tab Documented by: Admin: 09/12/20 13:57 Dose: 2 tab Documented by: Admin: 09/12/20 09:44 Dose: 2 tab Documented by: Admin: 09/12/20 05:15 Dose: 2 tab Documented by: Admin: 09/11/20 21:34 Dose: 2 tab Documented by: Admin: 09/11/20 16:49 Dose: 2 tab Documented by: Admin: 09/11/20 12:34 Dose: 2 tab Documented by: SAMMY - Assessment Assessment (Free Text/Narrative):: Patient is a pleasant 80 y/o female, status post right total knee arthroplasty, POD #2. Patient had no acute events overnight. Patient continues to have low blood pressure, antihypertensive medications held again today. Was weaned to room air yesterday, remains on room air and has maintained O2 saturations >90%. On the morning of POD#2, Molina catheter pulled, IV saline locked, and right knee dressing was changed. Patient has worked with PT and OT daily. Has transferred from chair to bed and ambulated 15 ft with FWW x2 assist yesterday. R knee ROM: 0-73. Has worked bilateral LE strengthening exercises with PT. Is requiring assistance with lifting leg into and out of bed with transfers. Has worked on ADLs with OT, using assistive equipment to complete tasks requiring verbal cues and minimal assistance. Reports pain is still severe in knee with transfers and ambulation, but pain is better controlled at rest this morning. Endorsed dizziness with transfer yesterday, but denied dizziness this morning. Denied any further nausea or vomiting since the evening of surgery. Tolerating regular diet well. Denied subjective fevers, chills, nor shortness of breath. Continues to require inpatient status to monitor postoperative vitals and for additional therapy services to progress ambulation distance and leg transfers into/out of bed prior to a safe discharge. Exam: Incision is well approximated, steristrips remain intact above. No surrounding erythema nor active drainage of incision. Mild warmth to touch of the R knee. Modest edema of R knee extending into the foot. Tibialis posterior appreciated, 2+. R calf is soft and supple. Sensation to R LE intact. Plan: * Continue with daily PT and OT services while in the hospital. * Hold BP medications this morning, continue q4 vital checks. * Continue with current pain regimen. * DVT/VTE prophylaxis: Continue with Lovenox 30 mg qd for chemical prophylaxis while inpatient and bilateral SCDs for mechanical prophylaxis . * Anticipate discharge to SNF tomorrow, pending improved ambulation status, pain controlled with PO medications, and BP within acceptable limits.
[2020-09-13] MEDS: Acetaminophen/oxyCODONE 325-5 MG Tab PO PRN ×2 (13:22→20:30)
--- NOTE | 2020-09-13 15:57 | OR ---
DATE OF PROCEDURE: 09/12/2020 SURGEON: Owen Guerrero MD PREOPERATIVE DIAGNOSIS: Osteoarthritis, right knee. POSTOPERATIVE DIAGNOSIS: Osteoarthritis, right knee. PROCEDURE PERFORMED: Right total knee arthroplasty utilizing [employer] components with a size 8 femur narrow, size F tibial component with a 14 mm posterior stabilized polyethylene, and a 34 mm patella. GAS ENGINE OPERATOR: FRAN Burrell ANESTHESIA: Spinal with sedation. INDICATIONS: Minna is a very pleasant 80-year-old female with a history of progressive bilateral knee pain. She has failed conservative treatment. Examination and imaging are consistent with end-stage osteoarthritis, particularly of the patellofemoral joint, with complete loss of articular cartilage. She now presents for right total knee arthroplasty. Risks, benefits, potential complications of procedure were discussed. DESCRIPTION OF PROCEDURE: After adequate anesthesia was obtained, the patient was placed supine with a tourniquet about the right upper thigh. Right leg was prepped and draped in a sterile fashion. Leg was exsanguinated and tourniquet inflated to 300 mmHg. A longitudinal incision was made over the anterior aspect of the knee, carried down to the subcutaneous tissues, and a medial parapatellar arthrotomy was performed. A portion of the fat pad and synovium around the patella were excised. Patella was partially everted, revealing complete eburnation of bone with very thin lateral facet. The patella was resected with an oscillating saw. The anterior horn of the medial meniscus was excised. The knee was subluxed. The patella subluxed laterally, and the intramedullary canal of the femur was drilled. Intramedullary guide was placed. Distal femoral cut was made, moving this back approximately 2 cm due to inadequate resection of the lateral condyle. The extramedullary tibial jig was then placed. This was aligned and secured. Proximal tibia was resected with an oscillating saw. Bone fragment was removed, and remaining medial and lateral menisci were excised. Attention was returned to the femur. A sizer was placed, measuring at size 8, and drill holes were made for the resection guide. An 8 resection guide was tapped in position, and remaining cuts were made. Drill holes made for the femoral pegs, and the femoral trial was placed. Intercondylar notch was cut for a posterior cruciate-sacrificing component. The tibial tray was sized, pinned in position, and tibial preparation was completed with a drill and punch. The patella was drilled and trial reduction made with a 34 mm patella and 12 mm polyethylene insert. This provided excellent patellar tracking. Slight laxity was noted with the 12 insert. The trials were removed. The knee was thoroughly irrigated with pulse lavage. Bone surfaces were dried. Components were cemented in place. Excess cement was removed. The knee was held in full extension with a 12 mm spacer as cement cured. Trial reduction was performed which showed some laxity in varus valgus. Additional trialing was done with 12 and 14 mm inserts with the 14 mm selected for better balance in flexion and extension. Full extension was still obtained. The trials were removed. The knee was irrigated. Final polyethylene was snapped into position. The knee was irrigated with a dilute Betadine solution which was left in place for 2-1/2 minutes followed by pulse lavage irrigation. The knee was closed with #2 Ethibond in interrupted fashion, 2-0 Vicryl, and a running 3-0 Monocryl. Steri-Strips were applied. Sterile dressing was then placed. The patient tolerated the procedure well. There were no complications. She was taken from the operating room in stable condition. Owen Guerrero MD /[id number]
[2020-09-13] MEDS: atorvaSTATin 20 MG Tab PO SCH (20:21)
[2020-09-14] MEDS: Ketorolac 30 MG/ML SDV IVPUSH PRN (06:10)
[2020-09-14 07:11] VITALS: BP 152/75; PULSE 84
[2020-09-14] MEDS: Trelegy Ellipta **PTOM INH SCH (07:22)
[2020-09-14] MEDS: Levothyroxine 88 MCG Tab PO SCH (07:57)
[2020-09-14] MEDS: Nozin Nasal Sanitizer NASBOTH SCH (08:00)
[2020-09-14] MEDS: Docusate Sodium 100 MG Cap PO SCH (08:01)
[2020-09-14] MEDS: Fluticasone Propionate Nasal Spray 16 GM Bottle NASBOTH SCH (08:04)
[2020-09-14] MEDS: Montelukast 10 MG Tab PO SCH (08:04)
[2020-09-14] MEDS: Enoxaparin 30 MG/0.3 ML Syringe SUBCUT SCH (08:04)
[2020-09-14] MEDS: Famotidine 20 MG Tab PO SCH (08:04)
[2020-09-14] MEDS: Cetirizine 10 MG Tab PO SCH (08:05)
--- NOTE | 2020-09-14 08:41 | PCM.DCSUM1 ---
Discharge Summary - Hospital Course Brief History: Janet 80 y/o female with chronic right knee pain from osteoarthritis. Symptoms refractory to conservative management and elected total knee arthroplasty. Underwent right total knee arthroplasty on 09/11/20. Surgery went well with no complications. Hospital stay prolonged due to hypotension and need for additional therapy services to progress ambulation abilities. Diagnosis: Stroke: No Modified Abby Scale: No Symptoms at All Modified [place] Scale Score: 0 - Discharge Data Discharge Date: 09/14/20 Discharge Disposition: DC/Tfer to SNF 03 Condition: Good - Referral to Home Health Date of Face to Face Encounter: 09/14/20 Primary Care Physician: Elyse Morrison PA-C - Discharge Diagnosis/Problem(s) (1) Status post total right knee replacement SNOMED Code(s): 0159061320529, [id number] ICD Code: Z96.651 - PRESENCE OF RIGHT ARTIFICIAL KNEE JOINT Status: Acute Current Visit: Yes (2) Postoperative anemia SNOMED Code(s): 758877359, 718491997 ICD Code: D64.9 - ANEMIA, UNSPECIFIED Status: Acute Current Visit: Yes - Patient Summary/Data Operative Procedure(s) Performed: right total knee arthroplasty Consults: Consultations 09/11/20 09:46 Consult to Case Management/Labor Custodian [CONS] Routine Comment: Physician Instructions: Service(s) to be Consulted: Case Management Reason for Consult: Plan for Discharge Special Instructions: Patient requesting SNF upon discharge OT Evaluation and Treatment [CONS] Routine Please Evaluate and Treat. OT Reason for Consult: ADL's Special Instructions: s/p R TKA This query below is only for informational purposes and is not editable. PT Evaluation and Treatment [CONS] Routine Please Evaluate and Treat. PT Reason for Consult: Post op Ortho Surgery Special Instructions: s/p R TKA WBAT on R LE This query below is only for informational purposes and is not editable. Hospital Course: Patient is a janet 80 y/o female, status post right total knee arthroplasty, POD#3. Patient tolerated surgery well with no major complications. Patient had intermittent hypotension throughout stay. Notes her BP has been running with systolic in the low 100s over the past few months. Antihypertensive medications were held throughout stay and blood pressure improved to within acceptable limi ts. Did require 1-2 L O2 the evening of surgery and into POD#1, but was weaned to room air and maintained O2 saturations in 90s. Postoperative anemia stable throughout stay; had dizziness with transfer the evening of surgery, but none thereafter. Denied subjective fever, chills, fatigue, nor shortness of breath throughout stay. Had difficulty with pain control the evening of surgery and into POD#1, which initially limited ambulation abilities. By POD#2, pain was better controlled with PO medications and ambulation progressed to 144 ft with FWW x1 assist. Participated in PT and OT sessions daily while in the hospital. With PT, worked on bilateral LE exercises, transferring right leg into and out of bed, transitions to chair, and ambulation with FWW. With OT, worked on ADLs with assistive equipment, demonstrated competency with minimal assistance and verbal cues. Tolerated regular diet well. Nausea the evening of surgery, no nausea or emesis thereafter. IV Saline locked and [place] discontinued the morning of POD#2. Dressing changes of R knee performed on POD#2 and #3. Exam: Incision approximated, steristrips remain intact above incision. No surrounding erythema nor active drainage. No ecchymosis of R knee. Mild warmth to touch of R knee. Mild edema of R knee extending into foot. R calf is soft and supple. Tibialis posterior appreciated, 2+. Dorsiflexion: 4/5. Plantar flexion: 3+/5. - Patient Instructions Diet: Regular Diet as Tolerated Activity: Apply Ice, Full Weight Bearing Driving: Do Not Drive Showering/Bathing: Shower in AM Wound/Incision Care: Keep Operative Site/Wound Site Clean and Dry, Change Dressing Daily Notify Provider of: Fever, Increased Pain, Swelling and Redness, Drainage - Discharge Plan *PRESCRIPTION DRUG MONITORING PROGRAM REVIEWED*: Yes *COPY OF PRESCRIPTION DRUG MONITORING REPORT IN PATIENT SEAN: Not Applicable Home Medications: Home Meds Aspirin [Halfprin] 81 mg PO DAILY 06/26/14 [History] Cholecalciferol (Vitamin D3) [Vitamin D3] 1,000 unit PO DAILY 06/26/14 [History] Multivitamin [Multi-Vitamin Daily] 1 each PO DAILY 06/26/14 [History] Albuterol Sulfate [Proair Hfa] 1 - 2 puff IH Q4H PRN 04/04/17 [History] Calcium Carb, Citrate/Vit D3 [Calcium + D3 ER Tablet] 1 tab PO DAILY 04/04/17 [History] Cetirizine [ZyrTEC] 10 mg PO DAILY 04/04/17 [History] Docusate Sodium [Colace] 100 mg PO DAILY 04/04/17 [History] Fluorometholone [Fluorometholone 0.1% Ophth Susp] 1 drop EYEBOTH BID PRN 04/04/17 [History] Fluticasone Propionate [Flonase] 2 spray JACINTO DAILY 04/04/17 [History] amLODIPine Besylate [Amlodipine Besylate] 5 mg PO DAILY 05/04/17 [History] Levothyroxine [Synthroid] 88 mcg PO QAM 10/11/17 [History] Simvastatin [Zocor] 40 mg PO BEDTIME 10/11/17 [History] Furosemide [Lasix] 20 mg PO DAILY PRN 10/08/18 [History] Losartan [Cozaar] 12.5 mg PO DAILY 10/08/18 [History] Metoprolol Succinate [Toprol XL] 12.5 mg PO DAILY 10/08/18 [History] Nitroglycerin 0.4 mg SL ASDIRECTED 10/08/18 [History] Famotidine 40 mg PO DAILY 06/01/20 [History] Fluticasone/Umeclidin/Vilanter [Trelegy Ellipta 100-62.5-25] 1 puff INH DAILY 06/01/20 [History] Montelukast [Singulair] 10 mg PO DAILY 06/01/20 [History] Oxygen Therapy Mode: Room Air Referrals: Ivanna Lance NP [Ordering Only Provider] - 09/22/20 10:30 am (Your appointment with Ivanna is at the [facility]. ) Saundra Garcia PA [Ordering Only Provider] - 09/26/20 1:00 pm (Please arrive 15 minutes early to register for your appointment.) - Discharge Summary/Plan Comment DC Time >30 min.: No Discharge Summary/Plan Comment: -Patient to complete morning physical therapy session prior to discharge -Prescription given for pain medication upon discharge: 5-325 mg Percocet, 1-2 tabs PO q6 hrs prn pain, dispense #50. Take 1 tab PO for moderate pain (4-6), take 2 tabs PO for severe pain (7-10) -Patient to take 1 Aspirin BID for DVT/VTE prophylaxis therapy -Continue Nozin spray BID -Follow up with orthopedic clinic in 2 weeks, encouraged to follow up sooner with any concerns -Patient to follow up with PCP regarding hypotension and antihypertensive medications -Anticipate discharge to SNF this afternoon - General Info Date of Service: 09/14/20 Functional Status: Reports: Pain Controlled, Tolerating Diet, Ambulating (with FWW ), Urinating - Review of Systems General: Reports: No Symptoms HEENT: Reports: No Symptoms Pulmonary: Reports: No Symptoms Cardiovascular: Reports: No Symptoms Gastrointestinal: Reports: No Symptoms Genitourinary: Reports: No Symptoms Musculoskeletal: Reports: Leg Pain (Right ), Joint Pain (R knee ), Joint Swelling (R knee ) Neurological: Reports: No Symptoms Psychiatric: Reports: No Symptoms - Patient Data Vitals - Most Recent: Last Vital Signs Temp 97.2 F 09/14/20 07:00 Pulse 84 09/14/20 07:00 Resp 18 09/14/20 07:00 BP 152/75 H 09/14/20 07:00 Pulse Ox 96 09/14/20 07:00 Weight - Most Recent: 206 lb I&O - Last 24 hours: Intake & Output 09/13/20 09/14/20 09/14/20 22:59 06:59 14:59 Intake Total 700 Balance 700 Lab Results - Last 24 hrs: Laboratory Results - last 24 hr 09/13/20 Range/Units 18:00 SARS CoV-2 RNA Rapid YAMILE Negative Med Orders - Current: Current Medications Acetaminophen (Acetaminophen 325 Mg Tab) 650 mg PO Q4H PRN PRN Reason: Pain/Fever Hydrocodone Bitart/Acetaminophen (Acetaminophen/Hydrocodone 325-5 Mg Tab) 1 tab PO Q4H PRN PRN Reason: Pain (mild 1-3) Albuterol (Albuterol 8 Gm Inhaler) 0 gm INH Q4H PRN PRN Reason: Shortness of Breath Amlodipine Besylate (Amlodipine 5 Mg Tab) 5 mg PO DAILY [facility] Last Admin: 09/13/20 08:40 Dose: Not Given Documented by: Atorvastatin Calcium (Atorvastatin 20 Mg Tab) 20 mg PO BEDTIME [facility] Last Admin: 09/13/20 20:21 Dose: 20 mg Documented by: Bandage/Support Products (Nozin Nasal Ingot Car Operator) 1 applic NASBOTH BID [facility] Stop: 09/17/20 21:01 Last Admin: 09/14/20 08:00 Dose: 1 applic Documented by: Cetirizine HCl (Cetirizine 10 Mg Tab) 10 mg PO DAILY [facility] Last Admin: 09/14/20 08:05 Dose: 10 mg Documented by: Docusate Sodium (Docusate Sodium 100 Mg Cap) 100 mg PO BID [facility] Last Admin: 09/14/20 08:01 Dose: 100 mg Documented by: Enoxaparin Sodium (Enoxaparin 30 Mg/0.3 Ml Syringe) 30 mg SUBCUT DAILY [facility] Last Admin: 09/14/20 08:04 Dose: 30 mg Documented by: Famotidine (Famotidine 20 Mg Tab) 40 mg PO DAILY [facility] Last Admin: 09/14/20 08:04 Dose: 40 mg Documented by: Fluorometholone (Fluorometholone 0.1% Ophth Susp 5 Ml Bottle) 0 ml EYEBOTH BID PRN PRN Reason: ALLERGY Fluticasone Propionate (Fluticasone Propionate Nasal [place] 16 Gm Bottle) 0 gm NASBOTH DAILY [facility] Last Admin: 09/14/20 08:04 Dose: 2 sprays Documented by: Furosemide (Furosemide 20 Mg Tab) 20 mg PO DAILY PRN PRN Reason: Edema Ketorolac Tromethamine (Ketorolac 30 Mg/Ml Sdv) 15 mg IVPUSH Q8H PRN PRN Reason: Pain Stop: 09/16/20 09:47 Last Admin: 09/14/20 06:10 Dose: 15 mg Documented by: Levothyroxine Sodium (Levothyroxine 88 Mcg Tab) 88 mcg PO DAILY@0730 [facility] Last Admin: 09/14/20 07:57 Dose: 88 mcg Documented by: Losartan Potassium (Losartan 25 Mg Tab) 12.5 mg PO DAILY [facility] Last Admin: 09/13/20 09:25 Dose: Not Given Documented by: Magnesium Hydroxide (Magnesium Hydroxide 400 Mg/5 Ml Susp 30 Ml Cup) 30 ml PO BID PRN PRN Reason: Constipation Last Admin: 09/14/20 08:00 Dose: 30 ml Documented by: Metoprolol Succinate (Metoprolol Succinate 25 Mg Tab.Er) 12.5 mg PO DAILY [facility] Last Admin: 09/13/20 09:26 Dose: Not Given Documented by: Montelukast Sodium (Montelukast 10 Mg Tab) 10 mg PO DAILY [facility] Last Admin: 09/14/20 08:04 Dose: 10 mg Documented by: Morphine Sulfate (Morphine 2 Mg/Ml Syringe) 1 mg IVPUSH Q1H PRN PRN Reason: Breakthrough Pain Trelegy Ellipta (Ptom) 0 puff INH DAILY@0700 [facility] Last Admin: 09/14/20 07:22 Dose: 1 puff Documented by: Ondansetron HCl (Ondansetron 4 Mg/2 Ml Sdv) 4 mg IVPUSH Q4H PRN PRN Reason: Nausea/Vomiting Last Admin: 09/11/20 16:48 Dose: 4 mg Documented by: Oxycodone/Acetaminophen (Acetaminophen/Oxycodone 325-5 Mg Tab) 1 - 2 tab PO Q4H PRN PRN Reason: Pain (moderate 4-6) Last Admin: 09/13/20 20:30 Dose: 1 tab Documented by: Discontinued Medications Bandage/Support Products (Nozin Nasal Ingot Car Operator) 1 applic NASBOTH BID ONE Stop: 09/11/20 06:31 Last Admin: 09/11/20 05:53 Dose: 1 applic Documented by: Cetirizine HCl (Cetirizine 10 Mg Tab) 10 mg PO DAILY [facility] Docusate Sodium (Docusate Sodium 100 Mg Cap) 100 mg PO BID [facility] Enoxaparin Sodium (Enoxaparin 30 Mg/0.3 Ml Syringe) 30 mg SUBCUT DAILY [facility] Fentanyl (Fentanyl 100 Mcg/2 Ml Sdv) Confirm Administered Dose 100 mcg .ROUTE .STK-MED ONE Stop: 09/11/20 07:40 Hydroxyzine HCl (Hydroxyzine Hcl 100 Mg/2 Ml Sdv) 75 mg IM ONETIME ONE Stop: 09/11/20 10:22 Last Admin: 09/11/20 10:23 Dose: 75 mg Documented by: Vancomycin HCl 1 gm/ Sodium (Chloride) 250 mls @ 150 mls/hr IV ONETIME ONE Stop: 09/11/20 09:09 Last Admin: 09/11/20 07:48 Dose: 150 mls/hr Documented by: Lactated Ringer's (Ringers, Lactated) 1,000 mls @ 75 mls/hr IV ASDIRECTED [facility] Last Admin: 09/11/20 06:48 Dose: 75 mls/hr Documented by: Sodium Chloride (Normal Saline) Confirm Administered Dose 10 mls @ as directed .ROUTE .STK-MED ONE Stop: 09/11/20 08:29 Lactated Ringer's (Ringers, Lactated) Confirm Administered Dose 1,000 mls @ as directed .ROUTE .[facility]-MED ONE Stop: 09/11/20 09:17 Sodium Chloride (Normal Saline) 1,000 mls @ 125 mls/hr IV ASDIRECTED [facility] Last Admin: 09/11/20 23:00 Dose: 125 mls/hr Documented by: Vancomycin HCl 1 gm/ Sodium (Chloride) 250 mls @ 150 mls/hr IV Q12H [facility] Stop: 09/12/20 03:39 Vancomycin HCl 1 gm/ Sodium (Chloride) 250 mls @ 167 mls/hr IV Q12H [facility] Stop: 09/12/20 03:30 Last Admin: 09/12/20 02:24 Dose: 167 mls/hr Documented by: Sodium Chloride (Normal Saline) 500 mls @ 500 mls/hr IV ONETIME ONE Stop: 09/11/20 14:59 Last Admin: 09/11/20 13:34 Dose: 500 mls/hr Documented by: Levothyroxine Sodium (Levothyroxine 88 Mcg Tab) 88 mcg PO QAM [facility] Losartan Potassium (Losartan 25 Mg Tab) 12.5 mg PO DAILY [facility] Metoprolol Succinate (Metoprolol Succinate 25 Mg Tab.Er) 12.5 mg PO DAILY [facility] Midazolam HCl (Midazolam 1 Mg/Ml 2 Ml Sdv) Confirm Administered Dose 2 mg .ROUTE .STK-MED ONE Stop: 09/11/20 07:40 Montelukast Sodium (Montelukast 10 Mg Tab) 10 mg PO DAILY [facility] Morphine Sulfate (Morphine 2 Mg/Ml Syringe) 2 mg IVPUSH ONETIME ONE Stop: 09/11/20 09:53 Last Admin: 09/11/20 09:57 Dose: 2 mg Documented by: Non-Formulary Medication (Amlodipine Besylate [Amlodipine Besylate]) 5 mg PO DAILY [facility] Non-Formulary Medication (Famotidine [Famotidine]) 40 mg PO DAILY [facility] Non-Formulary Medication (Fluticasone/Umeclidin/Vilanter [Trelegy Ellipta 100-62.5-25]) 1 puff INH DAILY [facility] Phenylephrine HCl (Phenylephrine 1% 10 Mg/Ml Sdv) Confirm Administered Dose 10 mg .ROUTE .STK-MED ONE Stop: 09/11/20 08:29 Povidone Iodine (Povidone-Iodine 10% Soln 118.25 Ml Bottle) Confirm Administered Dose 1 ml .ROUTE .STK-MED ONE Stop: 09/11/20 06:42 Last Admin: 09/11/20 08:39 Dose: 40 ml Documented by: Propofol (Propofol 200 Mg/20 Ml Sdv) Confirm Administered Dose 200 mg .ROUTE .STK-MED ONE Stop: 09/11/20 07:40 Propofol (Propofol 200 Mg/20 Ml Sdv) Confirm Administered Dose 200 mg .ROUTE .STK-MED ONE Stop: 09/11/20 09:03 Simvastatin (Simvastatin 20 Mg Tab) 40 mg PO BEDTIME [facility] Simvastatin (Simvastatin 20 Mg Tab) 40 mg PO BEDTIME [facility] Last Admin: 09/11/20 20:28 Dose: 40 mg Documented by: - Exam Quality Assessment: Reports: DVT Prophylaxis General: Reports: Alert, Oriented, Cooperative, No Acute Distress Extremities: Pedal Edema, Joint Swelling (right knee ), Increased Warmth Skin: Reports: Dry, Intact Wound/Incisions: Reports: Healing Well, Dressing Dry and Intact, No Drainage Neurological: Reports: No New Focal Deficit Psy/Mental Status: Reports: Alert, Normal Affect, Normal Mood
[2020-09-14] MEDS: Losartan 25 MG Tab PO SCH (09:27)
[2020-09-14] MEDS: Acetaminophen/oxyCODONE 325-5 MG Tab PO PRN (11:39)
== END 2020-09-14 11:45 | DRG 470 ==
LOC: JP.SDS 07:30 → JP.MS 09:46 → JP.SDS 09-12 07:30 → JP.MS 09-12 07:31 → UNDOADMIN 09-12 07:31 → JP.MS 09-12 10:03 → UNDODISIN 09-14 11:45
PROVIDERS: ADMIT Specialist; ATTEND Specialist
PROC: 0SRC0JZ Replacement of Right Knee Joint with Synthetic Substitute, Open Approach (ICD-10-PCS; principal; 2020-09-12)
DX: M17.11 Unilateral primary osteoarthritis, right knee (principal); I50.32 Chronic diastolic (congestive) heart failure; Z20.822 Contact with and (suspected) exposure to COVID-19; J44.9 Chronic obstructive pulmonary disease, unspecified; Z95.0 Presence of cardiac pacemaker; D64.9 Anemia, unspecified; E03.9 Hypothyroidism, unspecified; E78.5 Hyperlipidemia, unspecified; K59.09 Other constipation; I11.0 Hypertensive heart disease with heart failure; Z85.118 Personal history of other malignant neoplasm of bronchus and lung; Z88.2 Allergy status to sulfonamides; Z88.0 Allergy status to penicillin; Z88.1 Allergy status to other antibiotic agents
CPT/HCPCS: 36415; 73560-26-RT; 73560-RT; 85027; 86850; 86900; 86901; 94640; 97110-GP; 97162-GP; 97166-GO; 97530-GP; 97535-GO; 97535-GP; A9270-GY; C1713; C1776; J1650; J1885; J2250; J2270; J2370; J2405; J2704; J3010; J3370; J3410; J7030; J7040; J7050; J7120; U0002

== ENCOUNTER 2021-04-05 06:23 | Day surgery (SDC) | payer MEDICARE, OTHER ==
[~2021-04-05 06:23] MED LIST changes: -Lactated Ringers 1,000 ML IV SCH; -Nozin Nasal Sanitizer NASBOTH ONE; -Povidone-Iodine 10% Soln 118.25 ML Bottle ONE; +Sodium Chloride 0.9% 10 ML Syringe FLUSH PRN
[2021-04-05 07:41] VITALS: BP 137/69; PULSE 63
--- NOTE | 2021-04-05 10:44 | OR ---
DATE OF PROCEDURE: 04/05/2021 SURGEON: Donna Red MD POSTOPERATIVE CARE: Postoperative care will be provided mainly at the [address] [place] [address] [facility] in conjunction with [facility]. PREOPERATIVE DIAGNOSIS: Cataract, left eye. POSTOPERATIVE DIAGNOSIS: Cataract, left eye. PROCEDURE: Phacoemulsification with intraocular lens placement, left eye. ANESTHESIA: Topical and intracameral. ESTIMATED BLOOD LOSS: Minimal. COMPLICATIONS: None. PATHOLOGY SPECIMENS: None. SURGICAL FINDINGS: None. INDICATION FOR PROCEDURE: The patient is an 81-year-old female with history of a visually significant cataract in the left eye, which interfered with activities of daily living. This consisted of a nuclear sclerosis cataract. Following careful discussion of the risks, benefits and alternatives to cataract extraction with intraocular lens placement including blindness and , the patient elected to proceed, and informed, written consent was obtained prior to the procedure. DESCRIPTION OF THE PROCEDURE: The patient was previously identified, and a coco placed above the left eye. All sources, including the patient, indicated that the left eye was the correct eye. The patient was subsequently taken to the operating room where standard monitors were applied. The patient was then prepped and draped in the usual sterile fashion for ophthalmic surgery. Attention was first directed at the 12 o'clock position where a paracentesis port was fashioned. Shugar solution followed by Viscoat was instilled into the eye. Attention was then directed to the 8:30 position where a triplanar incision was made in a near-clear manner using a keratome. A continuous capsulorrhexis was then made using a combination of the cystotome and Utrata forceps. Hydrodissection was achieved using a balanced salt solution, and the lens rotated nicely. Phacoemulsification was then done using a modified [id number] technique without complication. Phaco time was 3.55 CDE. The remaining cortex was removed using the irrigation/aspiration handpiece. Provisc was then instilled into the eye. A Technis lens, model DIB00, at 17.0 diopters was then placed in the capsular bag using an [place] injector. The remaining viscoelastic was removed using the irrigation/aspiration forceps. All wounds were then checked and found to be watertight. The lid speculum and drapes were removed. Maxitrol ointment was placed in the patient's left eye, and the eye was shielded. The patient tolerated the procedure well. The patient was instructed to follow up tomorrow. All needle and sponge counts were correct at the end of the procedure. There were no surgical findings. Donna Red MD /[id number]
== END 2021-04-05 07:54 | disposition home or self-care (01) ==
LOC: JP.SDS 06:23
PROVIDERS: ATTEND Ophthalmology
DX: H25.12 Age-related nuclear cataract, left eye (principal); J44.9 Chronic obstructive pulmonary disease, unspecified; G47.33 Obstructive sleep apnea (adult) (pediatric); I11.0 Hypertensive heart disease with heart failure; K21.9 Gastro-esophageal reflux disease without esophagitis; E66.9 Obesity, unspecified; E03.9 Hypothyroidism, unspecified; G62.9 Polyneuropathy, unspecified
CPT/HCPCS: V2632

== ENCOUNTER 2021-12-09 07:12 | Emergency (ER) | payer MEDICARE, OTHER ==
[2021-12-09] MEDS ORDERED: Sodium Chloride 0.9% 10 ML Syringe FLUSH PRN (07:22)
[2021-12-09] MEDS ORDERED: Ondansetron 4 MG/2 ML SDV IVPUSH ONE (07:24)
[2021-12-09 08:08] LABS: ESTIMATED GFR 65 mL/min (>60); TROPONIN I HIGH SENSITIVITY 7.7 pg/mL (<=60.3)
[2021-12-09] MEDS ORDERED: Ketorolac 30 MG/ML SDV IVPUSH ONE (08:32)
[2021-12-09] MEDS ORDERED: Sodium Chloride 0.9% 50 ML IV SCH (09:00)
[2021-12-09] MEDS ORDERED: Iopamidol 755 Mg/ML 100 ML Bottle IV ONE (09:00)
[2021-12-09] MEDS ORDERED: Levofloxacin 250 MG Tab PO ONE (09:35)
[2021-12-09 10:52] VITALS: BP 122/77; PULSE 88
== END 2021-12-09 11:30 | disposition home or self-care (01) ==
LOC: JP.ED 07:12
DX: U07.1 COVID-19 (principal); J18.9 Pneumonia, unspecified organism; I11.0 Hypertensive heart disease with heart failure; I50.32 Chronic diastolic (congestive) heart failure; J44.9 Chronic obstructive pulmonary disease, unspecified; R07.89 Other chest pain; J90 Pleural effusion, not elsewhere classified; R79.1 Abnormal coagulation profile; E66.9 Obesity, unspecified; Z68.30 Body mass index [BMI] 30.0-30.9, adult; Z91.048 Other nonmedicinal substance allergy status; Z88.1 Allergy status to other antibiotic agents; Z88.0 Allergy status to penicillin; Z88.2 Allergy status to sulfonamides; Z79.899 Other long term (current) drug therapy; Z79.82 Long term (current) use of aspirin
CPT/HCPCS: 36415; 71045; 71275; 80053; 83880; 84145; 84484; 85025; 85379; 86140; 93005; 96374; 96375; 99285; A9270; J1885; J2405; J3490; Q9967

== ENCOUNTER 2022-11-25 08:01 | Day surgery (SDC) | payer MEDICARE, OTHER ==
[~2022-11-25 08:01] MED LIST changes: +Propofol 200 MG/20 ML SDV ONE; -Sodium Chloride 0.9% 10 ML Syringe FLUSH PRN; +fentaNYL 100 MCG/2 ML SDV ONE
[2022-11-25] MEDS: Lactated Ringers 1,000 ML IV SCH (09:15)
[2022-11-25 10:36] VITALS: BP 136/74; PULSE 60
== END 2022-11-25 10:50 | disposition home or self-care (01) ==
LOC: JP.SDS 08:01
PROVIDERS: ATTEND Student in an Organized Health Care Education/Training Program
DX: K21.00 Gastro-esophageal reflux disease with esophagitis, without bleeding (principal); K44.9 Diaphragmatic hernia without obstruction or gangrene; K29.50 Unspecified chronic gastritis without bleeding; J44.9 Chronic obstructive pulmonary disease, unspecified; I10 Essential (primary) hypertension; I48.92 Unspecified atrial flutter; I27.20 Pulmonary hypertension, unspecified; C34.90 Malignant neoplasm of unspecified part of unspecified bronchus or lung; Z86.73 Personal history of transient ischemic attack (TIA), and cerebral infarction without residual deficits; Z88.0 Allergy status to penicillin; Z88.1 Allergy status to other antibiotic agents; Z88.2 Allergy status to sulfonamides; Z91.048 Other nonmedicinal substance allergy status
CPT/HCPCS: J2704; J3010; J7120

== ENCOUNTER 2025-02-14 09:41 | Emergency (ER) | payer MEDICARE, OTHER ==
[2025-02-14 10:18] VITALS: BP 144/69; PULSE 60
[2025-02-14 11:16] LABS: BASOPHILS ABSOLUTE AUTO 0.04 K/uL (0.00-0.10); BASOPHILS PERCENT AUTO 0.5 % (0.1-1.3); EOSINOPHILS ABSOLUTE AUTO 0.28 K/uL (0.00-0.40); EOSINOPHILS PERCENT AUTO 3.7 % (0.0-5.4); IMMATURE GRAN ABSOLUTE AUTO 0.05 K/uL (0.00-0.23); IMMATURE GRAN PERCENT AUTO 0.7 % (0.0-0.7); LYMPHOCYTES ABSOLUTE AUTO 1.71 K/uL (0.8-3.3); LYMPHOCYTES PERCENT AUTO 22.5 % (11.4-47.7); MONOCYTES ABSOLUTE AUTO 0.71 K/uL (0.20-0.90); MONOCYTES PERCENT AUTO 9.4 % (3.3-12.6); NEUTROPHILS ABSOLUTE AUTO 4.80 K/uL (1.0-7.6); NEUTROPHILS PERCENT AUTO 63.2 % (40.0-78.1); PLATELET COUNT,PLT 222 K/uL (130-375); RED BLOOD CELL COUNT 4.53 M/uL (3.77-5.24); WHITE BLOOD CELL COUNT,WBC 7.6 K/uL (3.2-11.0)
[2025-02-14 11:38] LABS: A/G RATIO 1.1 (1.2-2.2); ALANINE AMINOTRANSFERASE,ALT 42 U/L (12-78); ASPARTATE AMNIOTRANSFERASE,AST 32 U/L (15-37); BILIRUBIN TOTAL 0.5 mg/dL (0.2-1.0); BLOOD UREA NITROGEN,BUN 20 mg/dL (7-18); CARBON DIOXIDE,CO2 31 mmol/L (21-32); CHLORIDE,CL 102 mmol/L (100-108); CREATININE 0.8 mg/dL (0.6-1.0); EST CRCL DRUG DOSING (CG) 49.88 mL/min; ESTIMATED GFR 73 mL/min (>60); GLUCOSE RANDOM 93 mg/dL (74-106); POTASSIUM,K 4.1 mmol/L (3.6-5.2); PROTEIN TOTAL,TP 6.4 g/dL (6.4-8.2); SODIUM,NA 136 mmol/L (140-148)
[2025-02-14 11:40] LABS: APPEARANCE,URINE CLEAR (CLEAR); GLUCOSE,URINE NEGATIVE (NEGATIVE); OCCULT BLOOD,URINE NEGATIVE (NEGATIVE)
[2025-02-14 11:54] LABS: SQUAMOUS EPITHELIAL CELLS,UR RARE /HPF; UROTHELIAL CELLS,URINE NOT SEEN /HPF
== END 2025-02-14 12:34 | disposition home or self-care (01) ==
LOC: JP.ED 09:41
DX: R53.81 Other malaise (principal); I11.0 Hypertensive heart disease with heart failure; I50.9 Heart failure, unspecified; K21.9 Gastro-esophageal reflux disease without esophagitis; E66.9 Obesity, unspecified; E03.9 Hypothyroidism, unspecified; Z88.0 Allergy status to penicillin; Z88.1 Allergy status to other antibiotic agents; Z88.2 Allergy status to sulfonamides; Z91.048 Other nonmedicinal substance allergy status; Z79.82 Long term (current) use of aspirin; Z79.899 Other long term (current) drug therapy; Z79.890 Hormone replacement therapy; Z86.16 Personal history of COVID-19
CPT/HCPCS: 36415; 80053; 81001; 85025; 93005; 99284